=== PATIENT | male | born 1940 | race Caucasian/White ===

== ENCOUNTER 2016-11-02 09:39 | Inpatient (IN) ==
[2016-11-02] MEDS ORDERED: MORPHINE IV ONE ×3 (10:09→13:01)
[2016-11-02] MEDS ORDERED: ZOFRAN IV ONE (10:10)
--- NOTE | 2016-11-02 10:16 | PROVIDER DOCUMENTATION ---
HPI-Musculoskeletal Pain/Inj - GENERAL Source: patient - HX OF PRESENT ILLNESS-MUSKULOSKELTAL Quality of Pain: reports: aching Severity in ED: moderate Onset/Duration: this morning Timing: still present Modifying Factors: improves with: nothing Any recent injury?: Yes (fall ) Locality of Occurance: Home Similar Symptoms Previously?: Yes Recently seen or treated by another doctor?: No - FALL INJURY Location of Pain/Injury: reports: pelvis (R hip), lower extremity (R upper leg) Pain Radiation: reports: no radiation Reason for Fall: reports: tripped Symptoms prior to fall:: reports: none Loss of Consciousness: no loss of consciousness Injury Associated Symptoms: reports: joint pain (R hip), unable to bear weight ( R), trouble walking. denies: arm pain, back/neck pain, chest pain, diaphoresis , dizziness, headaches, muscle aches, nausea, puncture wound, shortness of breath, sensory/motor loss, snap/crack/pop sensation, pain with inspiration, vomiting, weakness - TRUNK INJURY Location of Injury(s)/Pain: reports: pelvis (R) Context / Method of Injury: reports: fall Associated Symptoms: reports: denies symptoms - HIP/PELVIS PAIN/INJURY Hip Pain Location: reports: hip (R) Pain Radiation: reports: upper legs (R) Context / Method of Injury: reports: fall Associated Symptoms: reports: weakness in legs/feet (R). denies: loss of bladder control, loss of bowel control, lower back pain, muscle spasms, numbness in legs/feet, sensory/motor loss, tingling in legs/feet - LOWER EXTREMITY PAIN/INJURY Lower Extremities Pain: leg: right (upper leg pain ) Context / Method of Injury: reports: fell Associated Symptoms: reports: weakness in legs/feet (R). denies: loss of bladder control, loss of bowel control, lower back pain, muscle spasms, numbness in legs/feet, sensory/motor loss, tingling in legs/feet <Terrie Buck - Last Filed: 11/06/16 10:46> <Rashawn Wren - Last Filed: 11/14/16 11:19> - GENERAL Chief Complaint: Hip Pain Stated Complaint: Fall Time Seen by Provider: 11/02/16 10:06 - HX OF PRESENT ILLNESS-MUSKULOSKELTAL Nature of Presenting Problem: Pt is 76 y/o M presents to the ED via EMS with R hip pain. EMS states Pt fell this am due to tripping. Pt states pain in R hip and R upper leg. Pt denies head injury or LOC. (Terrie Buck) Review of Systems - Adult - REVIEW OF SYSTEMS - ADULT Constitutional: denies: chills, fever Eyes: denies: blurred vision, double vision Ears, Nose, Mouth & Throat: denies: ear pain, nose pain, throat pain Cardiovascular: denies: chest pain, heart murmur, irregular heart rate Respiratory: denies: cough, shortness of breath, wheezing Gastrointestinal: denies: abdominal pain, diarrhea, nausea, vomiting Genitourinary: denies: dysuria, hematuria Musculoskeletal: reports: bone pain, joint pain (R hip), other (pain in r hip, pelvis, and upper leg). denies: back pain, neck pain Integumentary: denies: hives, itching Neurological: denies: dizziness/vertigo, headache/migraines Psychiatric: reports: no symptoms reported Endocrine: reports: no symptoms reported Hematologic/Lymphatic: reports: no symptoms reported Allergic/Immunologic: reports: no symptoms reported All Other Systems: Reviewed and Negative <Terrie Buck - Last Filed: 11/06/16 10:46> Past History - Adult - PAST MEDICAL HISTORY-ADULT Review of Records: reports: Nursing Assessment Review, Medications Reviewed, Social history reviewed & non-contributory. Major Childhood Illnesses: reports: denies history Cardiovascular: reports: CAD, CHF, HTN, hyperlipidemia, VA Respiratory: reports: COPD Gastrointestinal: reports: denies history Obstetrical/Gynecological: reports: denies history Genitourinary: reports: denies history Musculoskeletal: reports: denies history Neurological: reports: CVA Endocrine/Immune: reports: anemia (Iron Deficiency), Diabetes Other Conditions: reports: denies history - PRIOR SURGERIES/PROCEDURES Surgical/Procedure History: reports: cardiac stent, tonsillectomy, hernia repair , other (vasectomy,carotids) - IMMUNIZATION STATUS Childhood Immunizations: See Nurse Assessment Flu Vaccine: See Nurse Assessment - FAMILY HISTORY Family History: reviewed, not pertinent - SOCIAL HISTORY Smoking: quit greater than 1 year, cigarettes Substance Use: denies Living Situation: family <Terrie Buck - Last Filed: 11/06/16 10:46> Physical Exam-Injury Related - Physical Exam-Injury Related Initial Vital Signs Reviewed: Yes General Appearance: appears well, alert, moderate distress Eyes: PERRL/EOMI, pink conjunctivae, fundi clear, no AV nicking Head, Ears, Nose, Mouth & Throat: normocephalic/atraumatic, moist mucous membranes, normal ENT inspection, TMs normal, pharynx normal Neck: non-tender, full range of motion, supple, normal inspection Respiratory: chest non-tender, lungs clear, normal breath sounds, no pleuratic chest pain, no respiratory distress, no accessory muscle use Cardiovascular: normal peripheral pulses, regular rate, rhythm, no edema, no gallop, no JVD, no murmur Peripheral Pulses: dorsalis-pedis (R): 2+, dorsalis-pedis (L): 2+ Abdominal Exam: normal bowel sounds, non tender, soft, no organomegaly, no pulsatile mass, distended Lymphatic: no adenopathy Back Exam: normal inspection, no CVA tenderness, no vertebral tenderness Extremity: normal capillary refill, deformity (R hip and upper leg), tenderness (R hip and upper leg). negative: normal range of motion (limited ROM to R hip and leg), normal gait, normal inspection, pelvis stable Integumentary: normal color, warm/dry Neurologic: grossly normal Psych/Mental Status: normal mood/affect, oriented x 3 <Terrie Buck - Last Filed: 11/06/16 10:46> Progress - EKG 1 Time of EKG reading by physician:: 13:28 EKG Read and Signed by:: Sourav Torrez EKG Interpretation (*Must complete 3 of following elements*): Abnormal (septal infarct, age undetermined) Rate: 92 Rhythm: normal sinus rhythm Comments: RBBB; Left anterior fascicular block; bifascicular block - XRAY 1 XRAY: Bilateral XRAY Study: Chest Impression: Abnormal XRAY Interpretation: worse cardiomegaly 2 XRAY: Right XRAY Study: Femur Impression: Abnormal XRAY Interpretation: apparent femur fracture 3 XRAY: Bilateral XRAY Study: Pelvis Impression: Normal XRAY Interpretation: no acute disease - CONSULTS/PCP/HOSPITALIST Notification #1 *Consult/PCP/Hospitalist*: Dr. Patten Time Discussed: 13:21 (Dr. Patten states will consult on case ) Reason/Comments: Dr. Torrez consults with Dr. Patten about Pt <Terrie Buck - Last Filed: 11/06/16 10:46> <Rashawn Wren - Last Filed: 11/14/16 11:19> - PLAN OF CARE/RESULTS Progress/Plan/Lab Results: Orders Category Date Time Status FEMUR MIN 2 VIEWS RIGHT [RAD] Stat Exams 11/02/16 10:08 Ordered PELVIS [RAD] Stat Exams 11/02/16 10:07 Ordered XRAY HIP UNILATERAL RT [RAD] Stat Exams 11/02/16 10:07 Ordered Morphine Med 11/02/16 10:09 Discontinued 4 mg IV NOW ONE Ondansetron [Zofran] Med 11/02/16 10:10 Discontinued 4 mg IV NOW ONE Vital Signs - 24 hr 11/02/16 09:49 Temperature 98.2 F Pulse Rate 97 H Respiratory 15 Rate Blood Pressure 133/75 O2 Sat by Pulse 98 Oximetry Laboratory Tests 11/02/16 11/02/16 11/02/16 09:52 09:52 09:52 WBC 14.39 H RBC 5.03 Hgb 14.8 Hct 45.4 MCV 90.3 MCH 29.4 MCHC 32.6 L RDW Std Deviation 15.3 H Plt Count 147 MPV 12.7 H Immature Gran % (Auto) 0.3 Neut % (Auto) 79.2 H Lymph % (Auto) 11.0 L [place] % (Auto) 7.6 Eos % (Auto) 1.6 Baso % (Auto) 0.3 Immature Gran # (Auto) 0.05 H Neut # (Auto) 11.38 H Lymph # (Auto) 1.58 [place] # (Auto) 1.10 H Eos # (Auto) 0.23 Baso # (Auto) 0.05 PT 10.0 INR 0.98 Sodium 141 Potassium 4.2 Chloride 100 Carbon Dioxide 26 Anion Gap 15 BUN 14 Creatinine 1.1 Estimated GFR/1.73 m2 > 60 BUN/Creatinine Ratio 13 Glucose 253 H Calculated Osmolality 290 Calcium 9.2 Total Bilirubin 0.58 AST 35 H ALT 31 Alkaline Phosphatase 108 Total Protein 7.1 Albumin 3.7 Globulin 3.4 Albumin/Globulin Ratio 1.1 Laboratory Tests 11/02/16 11/02/16 11/02/16 09:52 09:52 09:52 WBC 14.39 H RBC 5.03 Hgb 14.8 Hct 45.4 MCV 90.3 MCH 29.4 MCHC 32.6 L RDW Std Deviation 15.3 H Plt Count 147 MPV 12.7 H Immature Gran % (Auto) 0.3 Neut % (Auto) 79.2 H Lymph % (Auto) 11.0 L [place] % (Auto) 7.6 Eos % (Auto) 1.6 Baso % (Auto) 0.3 Immature Gran # (Auto) 0.05 H Neut # (Auto) 11.38 H Lymph # (Auto) 1.58 [place] # (Auto) 1.10 H Eos # (Auto) 0.23 Baso # (Auto) 0.05 PT 10.0 INR 0.98 Sodium 141 Potassium 4.2 Chloride 100 Carbon Dioxide 26 Anion Gap 15 BUN 14 Creatinine 1.1 Estimated GFR/1.73 m2 > 60 BUN/Creatinine Ratio 13 Glucose 253 H Calculated Osmolality 290 Calcium 9.2 Total Bilirubin 0.58 AST 35 H ALT 31 Alkaline Phosphatase 108 Total Protein 7.1 Albumin 3.7 Globulin 3.4 Albumin/Globulin Ratio 1.1 Urine Source Urine Color Urine Turbidity Urine pH Ur Specific [place] Urine Protein Ur Glucose (Stick) Ur Ketones (Stick) Urine Blood Urine Nitrite Urine Bilirubin Urobilinogen Dipstick Urine Leukocytes Urine WBC (Auto) Urine RBC (Auto) U Epithel Cells (Auto) Urine Bacteria (Auto) 11/02/16 13:59 WBC RBC Hgb Hct MCV MCH MCHC RDW Std Deviation Plt Count MPV Immature Gran % (Auto) Neut % (Auto) Lymph % (Auto) [place] % (Auto) Eos % (Auto) Baso % (Auto) Immature Gran # (Auto) Neut # (Auto) Lymph # (Auto) [place] # (Auto) Eos # (Auto) Baso # (Auto) PT INR Sodium Potassium Chloride Carbon Dioxide Anion Gap BUN Creatinine Estimated GFR/1.73 m2 BUN/Creatinine Ratio Glucose Calculated Osmolality Calcium Total Bilirubin AST ALT Alkaline Phosphatase Total Protein Albumin Globulin Albumin/Globulin Ratio Urine Source CATH Urine Color YELLOW Urine Turbidity CLEAR Urine pH 6.0 Ur Specific [place] 1.021 Urine Protein TRACE A Ur Glucose (Stick) >1000 A Ur Ketones (Stick) TRACE A Urine Blood NEGATIVE Urine Nitrite NEGATIVE Urine Bilirubin NEGATIVE Urobilinogen Dipstick NORMAL Urine Leukocytes NEGATIVE Urine WBC (Auto) <10 Urine RBC (Auto) <10 U Epithel Cells (Auto) <10 Urine Bacteria (Auto) NEGATIVE (Terrie Buck) Departure - Departure Time of Disposition Order: 13:21 Certified Medical Emergency: Emergent <Terrie Buck - Last Filed: 11/06/16 10:46> - Departure Time of Disposition Order: 13:21 Certified Medical Emergency: Emergent <Rashawn Wren - Last Filed: 11/14/16 11:19> - Departure DIAGNOSIS: Right femoral fracture Qualifiers: Encounter type: initial encounter Femur location: unspecified portion of femur Fracture type: closed Fracture morphology: other fracture Qualified Code(s): S72.8X1A - Other fracture of right femur, initial encounter for closed fracture Leukocytosis, unspecified Qualifiers: Leukocytosis type: other Qualified Code(s): D72.828 - Other elevated white blood cell count Disposition: ADMITTED INPATIENT 09 Condition: Stable Attestation - Scribe Verification/Attestation Scribe:: Terrie Buck Acting as Scribe for:: Sourav Torrez Scribe documention review:: This chart was documented by a scribe and accurately reflects the service the provider performed and the decisions made by the provider. <Terrie Buck - Last Filed: 11/06/16 10:46> - Scribe Verification/Attestation Scribe:: Rashawn Wren Acting as Scribe for:: Sourav Torrez Scribe documention review:: This chart was documented by a scribe and accurately reflects the service the provider performed and the decisions made by the provider. <Rashawn Wren - Last Filed: 11/14/16 11:19> Physician Attestation - Physician Attestation I, the provider, attest to the following statement:: Sourav Torrez Physician documentation Attestation:: This documentation recorded by the scribe accurately reflects the service I personally performed and the decisions made by me. <Rashawn Wren - Last Filed: 11/14/16 11:19>
[2016-11-02 11:58] LABS: MANUAL DIFF NEEDED? NO
[2016-11-02 12:08] LABS: BASO% 0.3 % (0.0-0.8); EOS# 0.23 X1000 (0.0-0.7); EOS% 1.6 % (0.0-10.0); HEMATOCRIT 45.4 % (42.0-52.0); HEMOGLOBIN 14.8 g/dL (14.0-18.0); IMM GRAN# 0.05 X1000 (0.0-0.04); IMM GRAN% 0.3 % (0.0-0.5); LYMPH# 1.58 X1000 (1.2-3.4); MCH 29.4 PG (27-31); MCHC 32.6 g/dL (33-37); MCV 90.3 FL (81-99); MONO% 7.6 % (1.7-9.3); MPV 12.7 FL (7.4-10.4); NEUT% 79.2 % (42.2-75.2); PLT 147 X1000 (130-400); RBC 5.03 XMIL (4.7-6.1)
[2016-11-02 12:35] LABS: INR 0.98
[2016-11-02 12:44] LABS: AGAP 15; ALBUMIN 3.7 g/dL (3.5-5.0); ALKALINE PHOSPHATASE 108 U/L (32-122); BUN 14 mg/dL (8-22); CALCIUM 9.2 mg/dL (8.8-10.2); CHLORIDE 100 mmol/L (98-107); COSMO 290; GOT 35 U/L (10-34); GPT 31 U/L (10-44); POTASSIUM 4.2 mmol/L (3.5-5.1); SODIUM 141 mmol/L (136-145); TCO2 26 mmol/L (25-35); TOTAL BILIRUBIN 0.58 mg/dL (0.20-1.00); TOTAL PROTEIN 7.1 g/dL (6.3-8.3)
--- NOTE | 2016-11-02 12:46 | Diag Imaging Result Document ---
PROCEDURE NAME: CHEST-1 VIEW - 11/02/2016 PORTABLE CHEST X-RAY: COMPARISON: 09/14/2016. FINDINGS: There is cardiomegaly. This may have worsened since prior. Stable calcified granuloma in the right lung base. No focal infiltrates or edema. IMPRESSION: Worsening cardiomegaly.
--- NOTE | 2016-11-02 12:46 | Diag Imaging Result Document ---
PROCEDURE NAME: PELVIS - 11/02/2016 PELVIS: COMPARISON: None. FINDINGS: The pelvis and hips are intact. There are some degenerative calcifications of the iliac wings and some mild degenerative changes of the hips. IMPRESSION: No acute disease.
--- NOTE | 2016-11-02 12:50 | Diag Imaging Result Document ---
PROCEDURE NAME: FEMUR MIN 2 VIEWS RIGHT - 11/02/2016 RIGHT FEMUR, 4 VIEWS: COMPARISON: None. FINDINGS: There is a displaced, angulated, oblique shaft fracture of the mid proximal-mid left femur shaft. Actually 2 the films are marked left and 2 are marked right, so it is anyone's guess which femur is fractured. Correlate clinically. IMPRESSION: Apparent femur fracture.
[2016-11-02 14:08] LABS: URINE CULTURE NEEDED? NO; URINE MICRO REVIEW NEEDED? NO; URINE SOURCE CATH
[2016-11-02 14:15] LABS: BILIRUBIN URINE NEGATIVE (NEGATIVE); BLOOD URINE NEGATIVE (NEGATIVE); COLOR YELLOW; GLUCOSE URINE >1000 mg/dL (NEGATIVE); LEUKOCYTES URINE NEGATIVE (NEGATIVE); NITRITE URINE NEGATIVE (NEGATIVE); PROTEIN URINE TRACE mg/dL (NEGATIVE); SP GRAVITY URINE 1.021; TURBIDITY URINE CLEAR (CLEAR); UR EPITHELIAL CELLS <10 /HPF (<10); URINE BACTERIA NEGATIVE /HPF; URINE RBC <10 /HPF (<10); URINE WBC <10 /HPF (<10); UROBILINOGEN URINE NORMAL (NORMAL)
[2016-11-02] MEDS ORDERED: LOVENOX SUBQ SCH (14:19)
[2016-11-02] MEDS ORDERED: ZOFRAN IV PRN (14:19)
[2016-11-02] MEDS ORDERED: VENTOLIN HFA INH PRN (14:19)
[2016-11-02] MEDS ORDERED: NORCO-7.5 PO PRN (14:19)
[2016-11-02] MEDS ORDERED: NS 1,000 ML IV SCH (14:19)
[2016-11-02] MEDS ORDERED: TYLENOL PO PRN (14:19)
[2016-11-02] MEDS ORDERED: NS NEB INH SCH (15:45)
[2016-11-02] MEDS: DILAUDID IV PRN ×2 (16:28→22:19)
[2016-11-02] MEDS: HUMULIN R SUBQ SCH ×2 (17:33→22:28)
[2016-11-02] MEDS: PRILOSEC PO SCH (18:08)
--- NOTE | 2016-11-02 18:08 | HISTORY AND PHYSICAL ---
PRIMARY CARE PROVIDER: Sandy Love M.D. CHIEF COMPLAINT: "I fell this morning when trying to get medication." HISTORY OF PRESENT ILLNESS: Mr. Brady is a 76-year-old, ill-appearing, male who is followed by hospice at home to manage his end-stage COPD. He states he is a full code here. He wishes to continue to be a full code here. He also has a history of diabetes, CAD, hypertension and a stroke, who apparently was sitting in his recliner this morning. He then stood up, twisted to go get his medication and he fell for which he then developed severe right leg pain. He apparently did hit his head on the coffee table but has no visual changes, no vomiting, no headache, no obvious signs of external contusion. He had an x-ray of his femur which showed a right femoral fracture. Dr. Patten has been consulted. We will admit to the surgical floor and NPO after midnight for possible surgery. We will keep the right leg in Sullivan's traction. PAST MEDICAL HISTORY: Diabetes mellitus type 2 times 1 year, coronary artery disease, congestive heart failure, hypertension, hypercholesterolemia, end-stage COPD, CVA in 1974, saccular aneurysm at the mid abdominal aorta, peripheral neuropathy, and obstructive sleep apnea. PAST SURGICAL HISTORY: Cardiac stents, tonsillectomy, inguinal hernia repair, vasectomy. SOCIAL HISTORY: He smoked 35 packs per day for 65 years, quit 05/21/2016. Denies alcohol or illicit drug use. He is on hospice for COPD end stage management. FAMILY HISTORY: Mother is at 84, she had coronary artery disease and CVA. Father at 69 from unknown causes. REVIEW OF SYSTEMS: Fourteen point review of systems were complete. He denies nausea, vomiting, diarrhea. He denies fever or chills. He denies chest pain. He does state that he has a moderate amount of phlegm that he coughs up but is unsure of the color. ALLERGIES: No known drug allergies. HOME MEDICATIONS: Coreg 6.25 p.o. twice daily, Plavix 75 mg p.o. daily, albuterol sulfate inhaled every 6 hours, Lasix 20 mg p.o. twice daily, albuterol inhaled twice daily, Lipitor 20 mg p.o. daily, Flomax 0.4 mg p.o. daily, Glucotrol 10 mg p.o. twice daily, Lasix 40 mg p.o. daily though it appears that he takes 60 mg in the morning and 20 at night, potassium chloride 10 mEq p.o. daily, Prilosec 20 mg p.o. daily, Singulair 10 mg p.o. daily, Januvia 100 mg p.o. daily, metformin 1000 mg p.o. twice daily. LABORATORY DATA: White blood cells 14,000, hemoglobin 14, hematocrit 45, platelet count 147,000. INR 0.98. Sodium 141, potassium 4.2, BUN 14, creatinine is 1.1, glucose 253, calcium 9.2, total bilirubin 0.58. AST 35, ALT 31, albumin 3.7. Urinalysis: Trace protein, greater than 1000 glucose and trace ketones. Otherwise negative. IMAGING: Chest x-ray: Worsening cardiomegaly. Stable calcified granuloma in the right lung base. No infiltrates or edema. Femur x-ray: Right femoral fracture. Hip-pelvic x-ray: No acute fractures. PHYSICAL EXAMINATION: VITAL SIGNS: Temperature is 98.1 degrees, heart rate 89, respiratory rate 18, blood pressure 152/74, O2 saturation 95% on 3 L nasal cannula. He is 5 feet 6 inches tall, 220 pounds, BMI 35.5. GENERAL: Mr. Brady is an ill-appearing 76-year-old, male. He is in no acute distress. He is answering most questions appropriately. HEENT: Atraumatic, normocephalic. Pupils equal, round, reactive to light. Extraocular movements intact. Mucous membranes are very dry. NECK: No JVD or carotid bruits. CARDIOVASCULAR: S1, S2. Regular rate and rhythm. No rubs, gallops or murmurs. PULMONARY: Coarse bilaterally anteriorly in the bases and decreased in the bases. No accessory muscle use or work of breathing noted. Currently on 3 L nasal cannula. He does have a little bit of almost a central cyanosis appearance. He has got a blue hue to his lips and his ears but refuses ABGs. GASTROINTESTINAL: Tender right upper and left lower quadrant. EXTREMITIES: Signs of venous stasis in the bilateral lower extremities. He has +2 dorsalis pedal pulses, +2 radial pulses. Extreme sensitivity to touch which causes pain to bilateral lower extremities. Upper extremities equal in strength. Left lower extremity has range of motion. Right lower extremity is unable to be moved secondary to fracture. He is able to wiggle his toes. NEUROLOGIC: Alert and oriented. SKIN: Warm, dry, intact. There are a couple of little old scabs along the left jordan. ASSESSMENT AND PLAN: 1. Right femoral fracture. He will be placed in Sullivan's traction. Dilaudid for pain control. Dr. Patten has been consulted. NPO after midnight. Antiemetics for nausea. 2. Leukocytosis. Urinalysis is negative. We will send a sputum culture as he has a productive cough and is unsure of the color although chest x-ray appears to be clear of any signs of pneumonia. We will add blood cultures on. He is afebrile. White count is 14,000. This could be secondary to inflammatory response. 3. Diabetes mellitus type 2. Do a diabetic diet. Pattern blood glucoses with sliding scale insulin and check hemoglobin A1c. 4. End-stage chronic obstructive pulmonary disease with obstructive sleep apnea. He is followed by hospice at home for his end-stage chronic obstructive pulmonary disease management. We will do Xopenex-Atrovent nebs, budesonide nebs and acetylcysteine nebs. Aggressive pulmonary toilet and consider Pulmonary consultation. We will send a sputum culture. 5. Hypertension. Continue home medications. 6. Coronary artery disease. He had a history of cardiac stents. He is on Plavix. We will hold Plavix for now. 7. Congestive heart failure. Last echocardiogram was performed on 05/25/2016. Ejection fraction was estimated at 50%. Unsure if maybe he even has some diastolic dysfunction but could consider repeating an echocardiogram. His chest x-ray does show worsening cardiomegaly but there is no pulmonary edema at this time. He does have some trace lower extremity edema. 8. Hypercholesterolemia. Continue home medications. 9. History of cerebrovascular accident. No residuals. 10. Deep venous thrombosis prophylaxis. Low-dose Lovenox. 11. Gastrointestinal prophylaxis. Proton pump inhibitor. Dictated by ARTHUR Fuentes for Tim Nguyen MD
[2016-11-02] MEDS: PULMICORT INH SCH (19:53)
[2016-11-02] MEDS: ATROVENT NEB INH SCH ×2 (19:53→23:37)
[2016-11-02] MEDS: XOPENEX NEB INH SCH ×2 (19:53→23:37)
[2016-11-02] MEDS: MUCOMYST 20% INH SCH (19:53)
--- NOTE | 2016-11-02 21:39 | CONSULTATION ---
ADMITTING PHYSICIAN: Hospitalist. CONSULTING PHYSICIAN: Dawson Patten MD CHIEF COMPLAINT: Right hip pain. HISTORY OF PRESENT ILLNESS: Mr. Brady is a 76-year-old white male who experienced right hip pain status post a mechanical fall this morning at his home. He was arising from his seat when he pitched forward, twisting, landing on his right hip. He was unable to bear weight following the incident. He was brought to the emergency room by ambulance where radiographic evaluation of the right hip revealed an oblique midshaft right femur fracture. Mr. Brady admits he did strike his head when falling, however, he denies any headaches, changes in vision, loss of consciousness, or other focal deficits. Orthopedics was consulted for evaluation. Primary care provider is Sandy Love. ALLERGIES: No known drug allergies. PAST MEDICAL HISTORY: 1. Chronic obstructive pulmonary disease. 2. Coronary artery disease. 3. Cerebrovascular disease. 4. Diabetes mellitus type 2. 5. Diastolic heart failure. 6. Abdominal aortic aneurysm. 7. Osteoarthritis. 8. Gastroesophageal reflux disease. 9. Dyslipidemia. 10.Benign prostatic hypertrophy. PAST SURGICAL HISTORY: 1. Percutaneous transluminal coronary angioplasty on two separate occasions. 2. Left carotid endarterectomy. 3. Tonsillectomy. 4. Excision of skin cancer on his face. SOCIAL HISTORY: The patient is . He is a long-term smoker. He requires home oxygen. REVIEW OF SYSTEMS: HEENT: The patient has a history of a prior cerebrovascular accident in the remote past. He denies any residual focal neurological deficits. He also has previously undergone a carotid endarterectomy. Cardiac: The patient has a longstanding history of coronary artery disease, having undergone percutaneous transluminal coronary angioplasty. He has been diagnosed with diastolic heart failure. 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 He denies chest pain, pressure or other anginal equivalents. Pulmonary: The patient is a long-term smoker. He has a history of COPD and pulmonary insufficiency. He requires home oxygen. Gastrointestinal: He has a history of gastroesophageal reflux disease. Denies any recent nausea, vomiting, diarrhea, constipation. Genitourinary: He is treated for benign prostatic hypertrophy. Neurological: No residual deficits status post cerebrovascular accident. Musculoskeletal: He has a history of osteoarthritis and he is here today for evaluation of a right midshaft femur fracture. Other: Diabetes mellitus, abdominal aortic aneurysm, obesity. PHYSICAL EXAMINATION: General: The patient is alert and oriented. He is resting comfortably in bed. His is at his bedside. He is able to answer all questions fully and is articulate in his responses. HEENT: I performed a head to toe examination. No lumps, bumps or deformities on palpation of his face and cranium. Pupils are equal, round, and reactive to light. Nares were patent. He is wearing a nasal cannula. Cardiac: I was unable to discern heart sounds secondary to his chest wall size. Pulmonary: Lungs were clear bilaterally. The patient moved little air. Gastrointestinal: Obese white male. His abdomen was found. Bowel sounds are present. It is nontender. Genitourinary: He has a Espinoza catheter in place. Neurological: He is able to recognize soft touch. Gross motor function is intact to the affected extremity. Musculoskeletal: Right hip: He has fullness overlying the right femur. He refuses to move the extremity secondary to pain. Neurovascular status is intact with good peripheral pulse. IMPRESSION: Right oblique midshaft femur fracture. PLAN: Intramedullary nailing of the right midshaft femur fracture when medically cleared. The risks and benefits of surgery were explained to the patient including the risk of anesthesia, , bleeding, infection, damage to tendons, ligaments, nerves, and blood vessels, the possibility of blood clots and other imponderables were discussed. The patient wishes to proceed with operative management when indicated. Dictated by MARGARET Matias for Dawson Patten MD
[2016-11-02] MEDS: COREG PO SCH (22:19)
[2016-11-03] MEDS: XOPENEX NEB INH SCH ×6 (03:42→23:05)
[2016-11-03] MEDS: ATROVENT NEB INH SCH ×6 (03:42→23:05)
[2016-11-03 06:26] LABS: MANUAL DIFF NEEDED? NO
[2016-11-03 06:30] LABS: BASO% 0.3 % (0.0-0.8); EOS# 0.12 X1000 (0.0-0.7); EOS% 0.9 % (0.0-10.0); HEMATOCRIT 42.8 % (42.0-52.0); HEMOGLOBIN 13.8 g/dL (14.0-18.0); IMM GRAN# 0.04 X1000 (0.0-0.04); IMM GRAN% 0.3 % (0.0-0.5); LYMPH# 1.95 X1000 (1.2-3.4); LYMPH% 15.3 % (20.5-51.1); MCH 29.4 PG (27-31); MCHC 32.2 g/dL (33-37); MCV 91.3 FL (81-99); MONO% 9.4 % (1.7-9.3); MPV 11.1 FL (7.4-10.4); NEUT% 73.8 % (42.2-75.2); PLT 148 X1000 (130-400); RBC 4.69 XMIL (4.7-6.1)
[2016-11-03] MEDS: DILAUDID IV PRN ×2 (06:34→10:27)
[2016-11-03] MEDS: HUMULIN R SUBQ SCH ×3 (06:34→18:42)
[2016-11-03] MEDS: PRILOSEC PO SCH ×2 (06:34→18:47)
[2016-11-03 06:41] LABS: INR 1.01; PROTIME 10.3 Seconds (9.2-11.7); PTT 24.7 Seconds (22.0-36.0)
[2016-11-03 06:42] LABS: HEMOGLOBIN A1C 9.1 % (4.8-6.0)
[2016-11-03 06:45] LABS: AGAP 14; ALBUMIN 3.6 g/dL (3.5-5.0); ALKALINE PHOSPHATASE 79 U/L (32-122); BUN 11 mg/dL (8-22); CALCIUM 8.8 mg/dL (8.8-10.2); CHLORIDE 102 mmol/L (98-107); COSMO 294; GOT 31 U/L (10-34); GPT 26 U/L (10-44); MAGNESIUM 1.8 mg/dL (1.5-2.7); POTASSIUM 4.2 mmol/L (3.5-5.1); SODIUM 145 mmol/L (136-145); TCO2 29 mmol/L (25-35); TOTAL BILIRUBIN 0.78 mg/dL (0.20-1.00); TOTAL PROTEIN 6.2 g/dL (6.3-8.3)
[2016-11-03 06:50] LABS: FREE T4 0.96 ng/dL (0.93-1.70)
--- NOTE | 2016-11-03 07:54 | EKG Report ---
Test Performed on : 11/03/2016 07:03:47 AM Test Reason : chest pain Blood Pressure : / mmHG Vent. Rate : 090 BPM Atrial Rate : 090 BPM P-R Int : 182 ms QRS Dur : 138 ms QT Int : 410 ms P-R-T Axes : 055 -51 045 degrees QTc Int : 501 ms Normal sinus rhythm. Right bundle branch block Left anterior fascicular block Bifascicular block Septal infarct (cited on or before 07-JAN-2015) Possible Lateral infarct , age undetermined Abnormal ECG When compared with ECG of 02-NOV-2016 13:28, (Unconfirmed) Questionable change in initial forces of Septal leads Confirmed by Cecil PEREA, Young Bright ([id number]) on 11/05/2016 1:14:10 PM
[2016-11-03] MEDS: PULMICORT INH SCH ×2 (08:13→19:08)
[2016-11-03] MEDS: MUCOMYST 20% INH SCH ×2 (08:13→19:08)
--- NOTE | 2016-11-03 09:50 | CONSULTATION ---
DATE OF CONSULTATION: 11/03/2016 REFERRING PHYSICIAN: Dr. Nguyen. CHIEF COMPLAINT: Fall. HISTORY OF PRESENT ILLNESS: This is a 76-year-old, male with a past medical history of diabetes, CAD, CHF, hypertension, hyperlipidemia end-stage COPD, CVA, peripheral neuropathy, and obstructive sleep apnea who presented to the hospital after sustaining a mechanical fall. He has been admitted to the hospital for medical clearance for an intramedullary nailing of the right femur. The patient denies any chest pain, abdominal pain, nausea, vomiting, or increased work of breathing. REVIEW OF SYSTEMS: A 10-point review of systems was conducted. Pertinent findings are noted in the HPI, otherwise noncontributory. PAST MEDICAL HISTORY: As mentioned in the HPI, otherwise noncontributory. PAST SURGICAL HISTORY: Cardiac stents, tonsillectomy, inguinal hernia repair, vasectomy. SOCIAL HISTORY: The patient stopped smoking in 2015. Denies the use of alcohol or illicit drugs, and is on hospice for end-stage COPD management. FAMILY HISTORY: Notable for CAD and CVA. ALLERGIES: No known drug allergies. ACTIVE MEDICATIONS: Tylenol, Webb, Mucomyst, Lipitor, Pulmicort, Coreg, Lovenox, Dilaudid, Humulin, Atrovent, Xopenex, Singulair, Prilosec, Zofran, and Flomax. LABS AND INVESTIGATIONS: WBC 12.7, RBCs 4.69, hemoglobin 13.8, hematocrit 42.8 , platelet count 148,000. Sodium 145, potassium 4.2, chloride 102, carbon dioxide 29, anion gap 14, BUN 11, creatinine 1.1, glucose 207. Chest x-ray performed on 11/02/2016 shows worsening cardiomegaly. ASSESSMENT AND PLAN: This is a 76-year-old, male with a past medical history as mentioned in the history of present illness who presented to the hospital after sustaining a mechanical fall that resulted in a right femur fracture. COPD and pneumonia is possible. He is being medically cleared for an intramedullary nailing of the right femur. Continue chronic home medications, Dilaudid for pain management, his inhaled COPD regimen, Prilosec for gastrointestinal prophylaxis , and Lovenox for deep venous thrombosis prophylaxis. Further recommendations pending diagnostic studies. Dictated by ARTHUR Weeks for Guru Deras MD [facility]
[2016-11-03 10:54] LABS: ALLEN TEST YES; BE 3.8 mmoll (-3.0-3.0); BLOOD TYPE ARTERIAL; DRAW SITE L RADIAL; METHB 1.6 % (0.0-1.5); PO2(98.6) 52 mmHg (60-100); SAMPLE BLOOD; SAO2 88.9 % (95.0-100.0); THB 14.3 g/dL (11.5-17.4); pH(98.6) 7.35 (7.35-7.45)
[2016-11-03 11:01] LABS: MODALITY CANNULA; PCO2(98.6) 56 mmHg (35-45)
[2016-11-03] MEDS: COREG PO SCH ×2 (11:30→21:16)
--- NOTE | 2016-11-03 12:18 | PROGRESS NOTE ---
DATE: 11/03/2016 SUBJECTIVE: Today, Mr. Brady refers to be doing fine. He did not actually want anybody to bounce on his bed because of the pain. OBJECTIVE: Vital Signs: Stable. Blood pressure is 127/63, pulse of 58, respirations 20, and temperature is 98.2 degrees. General: Mr. Brady is a 76-year-old male, morbidly obese. He is in bed in some painful distress. Chest: Air entry is bilaterally reduced , but no crepitations, no rhonchi. Cardiovascular: Regular rate and rhythm. No murmurs , no rubs, no gallops. Abdomen: Distended, but nontender. Extremities: The right lower extremity at the thigh level is swollen and is tender. LABORATORY DATA: WBC is 12.71, hemoglobin is 13.8, platelet count of 147,000. The sodium is 145, potassium is 4.2, chloride is 102, bicarbonate is 29, and glucose is 207. A chest x-ray showed some cardiomegaly. ASSESSMENT: 1. Right oblique mid shaft femur fracture. The patient has been evaluated by Orthopedics and he is scheduled for surgery today. 2. Chronic obstructive pulmonary disease. Patient has actually been on hospice because of this and sounds like he has end-stage. We will ask Pulmonary Medicine to evaluate him, as well. 3. Morbid obesity. 4. Suspected sleep apnea. I think patient was on CPAP before; however, it does not look like he has been consistent with it. While he is here, we might be using the BiPAP if it is okay with Pulmonary Medicine. 5. History of coronary artery disease. 6. Congestive heart failure, stable. I think, in general, Mr. Brady is clinically stable. He does have end-stage chronic obstructive pulmonary disease, according to the . I think if patient will go under maybe spinal and local anesthesia, he should do fine for the surgery; however, Dr. Deras will also evaluate him and give us his recommendations. From the medical standpoint, I think he is relatively stable for a moderate-risk procedure. MTDD
[2016-11-03] MEDS: SINGULAIR PO SCH (12:21)
[2016-11-03] MEDS: FLOMAX PO SCH (12:21)
[2016-11-03] MEDS: LIPITOR PO SCH (12:22)
[2016-11-03] MEDS ORDERED: KEFZOL 2 GM/D5W 50 ML ONE (12:28)
--- NOTE | 2016-11-03 12:31 | EKG Report ---
Test Performed on : 11/02/2016 1:28:38 PM Test Reason : ED. Not ordered in [place] Blood Pressure : / mmHG Vent. Rate : 092 BPM Atrial Rate : 092 BPM P-R Int : 184 ms QRS Dur : 130 ms QT Int : 424 ms P-R-T Axes : 059 -58 041 degrees QTc Int : 524 ms Normal sinus rhythm. Right bundle branch block Left anterior fascicular block Bifascicular block Septal infarct (cited on or before 07-JAN-2015) Abnormal ECG When compared with ECG of 17-JAN-2015 20:56, premature atrial complexes. are no longer present (RBBB and left anterior fascicular block) is now present Questionable change in initial forces of Septal leads Unconfirmed Result
--- NOTE | 2016-11-03 12:39 | Diag Imaging Result Document ---
PROCEDURE NAME: CHEST-1 VIEW - 11/03/2016 PORTABLE CHEST X-RAY: COMPARISON: 11/02/2016. FINDINGS: Stable cardiomegaly. Lung volumes are lower. There is some worsening ill-defined airspace opacity in the right lung base suggesting atelectasis, although infiltrate is also possible. Otherwise little change from prior. IMPRESSION: Cardiomegaly. Lower lung volumes. Nonspecific atelectasis or infiltrate in the right lung base.
[2016-11-03] MEDS ORDERED: DIPRIVAN 1% ONE (14:40)
[2016-11-03] MEDS ORDERED: NS 1,000 ML ONE (14:56)
--- NOTE | 2016-11-03 15:03 | OPERATIVE NOTE ---
PROCEDURE DATE: 11/03/2016 PREOPERATIVE DIAGNOSIS: Right femur fracture. POSTOPERATIVE DIAGNOSIS: Right femur fracture. PROCEDURE: Right long trochanteric fixation nail placement, size 380 mm, with a 95 mm helical blade and 2 distal locking screws, 5.0 screws measuring 44 and 52 mm in length. ANESTHESIA: General. SURGEON: Dawson Patten MD. VETERINARIAN ASSISTANT: [place] PA-C. COMPLICATIONS: None. BLOOD LOSS: Minimal. DESCRIPTION OF PROCEDURE: The patient was brought to the operative suite and placed in supine position. After the satisfactory administration of general anesthesia, the patient was placed on the OSI table in the usual position for right hip. The right hip was then prepped and draped in usual sterile fashion. The right hip was reduced under fluoroscopy and then through a stab incision at the proximal tip of the greater trochanter dissected sharply through the skin. Then a guide pin was placed in the center of the femoral canal on AP and lateral images. It was reamed with a solid cannulated reamer and then a ball-tip guide wire was passed across the fracture site and buried in the distal metaphysis, and then the canal was serially reamed to 13 mm. It was measured to 380 mm. A 380 mm TFN was driven into place and then, once this was buried, through a stab incision laterally a guide pin was placed in the center of the femoral head on the AP and lateral images using the proximal guide. This was measured to 95 mm. It was reamed and then the helical blade was driven into place and locked proximally. The proximal guide was then removed. Traction was released and the fracture site was shown to be well reduced. The proximal helical blade and proximal nail were shown to be in good position, as well, on the AP and lateral images. Attention was then directed to the distal locking screws. Using the perfect circles technique through stab incisions, these holes were drilled and proper length screws were measured and driven into place. The wounds were copiously irrigated. Skin edges were approximated with 2-0 Vicryl. Skin was closed with skin kenrick and a sterile dressing was applied. The patient tolerated the procedure well, without complication. At the end of the procedure, all counts were correct x2. The patient was transferred to the recovery room in stable condition.
[2016-11-03] MEDS ORDERED: HALDOL IV PRN ×2 (15:14→15:23)
[2016-11-03] MEDS ORDERED: MILK OF MAGNESIA PO PRN ×2 (15:14→15:23)
[2016-11-03] MEDS ORDERED: ZOFRAN IV PRN ×2 (15:14→15:23)
[2016-11-03] MEDS: NS 1,000 ML IV SCH (15:15)
[2016-11-03] MEDS ORDERED: NS 1,000 ML IV SCH (15:23)
[2016-11-03] MEDS ORDERED: MORPHINE IV PRN (15:23)
[2016-11-03] MEDS ORDERED: OXY IR PO PRN (15:23)
[2016-11-03] MEDS ORDERED: LR 1,000 ML ONE (15:45)
[2016-11-03] MEDS ORDERED: ANESTHESIA PB SET 88 IN 5742 ONE (15:45)
[2016-11-03] MEDS ORDERED: EXTENSION SET 32 IN 4522 ONE (15:45)
[2016-11-03] MEDS ORDERED: XYLOCAINE-MPF 2% ONE (15:45)
--- NOTE | 2016-11-03 16:09 | ECHO REPORT ---
ORDER DATE: 11/03/2016 ECHOCARDIOGRAPHIC MEASUREMENTS: 1. Interventricular septum 1.1 2. .Left ventricular posterior wall 1.0. 3. Diastolic diameter 5.4 4. Left atrium 4.8. 5. Aorta 4.2. FINDINGS: 1. Aortic valve leaflets are trileaflet. Pulmonic valve not well visualized. Technically suboptimal study. 2. Mitral valve was normal. Normal left ventricular cavity size. Endocardium not well visualized in all views. 3. Estimated ejection fraction of 50-55%. Would recommend MUGA scan to accurately assess systolic function. 4. Peak velocity across the aortic valve less than 2 m/sec. There is no aortic stenosis or regurgitation. There is trace tricuspid regurgitation. Trace mitral regurgitation. Peak velocity across the tricuspid valve was less than 2 m/sec. 5. There is no pericardial effusion or obvious intracardiac mass or thrombus seen.
[2016-11-03] MEDS: TYLENOL PO SCH (16:51)
[2016-11-03] MEDS: OXY IR PO PRN ×2 (18:47→21:16)
[2016-11-03] MEDS ORDERED: COLACE PO SCH (21:00)
[2016-11-03] MEDS: COLACE PO SCH (21:15)
[2016-11-03] MEDS: KEFZOL 1 GM/D5W 50 ML IV SCH (21:15)
[2016-11-03] MEDS: PERIDEX MT SCH ×2 (21:15→21:25)
[2016-11-04] MEDS: TYLENOL PO SCH ×3 (01:10→17:02)
[2016-11-04] MEDS: XOPENEX NEB INH SCH ×5 (03:04→19:43)
[2016-11-04] MEDS: ATROVENT NEB INH SCH ×4 (03:04→15:40)
[2016-11-04] MEDS: KEFZOL 1 GM/D5W 50 ML IV SCH (04:17)
[2016-11-04] MEDS: OXY IR PO PRN ×3 (04:18→16:24)
[2016-11-04] MEDS: NS 1,000 ML IV SCH ×2 (04:18→17:11)
[2016-11-04 04:53] LABS: ALLEN TEST YES; BE 3.6 mmoll (-3.0-3.0); BLOOD TYPE ARTERIAL; DRAW SITE R RADIAL; METHB 1.6 % (0.0-1.5); O2(CT) 22.5 mL/dL (15.0-23.0); PO2(98.6) 71 mmHg (60-100); SAMPLE BLOOD; SAO2 96.1 % (95.0-100.0); THB 17.4 g/dL (11.5-17.4); pH(98.6) 7.37 (7.35-7.45)
[2016-11-04 04:54] LABS: MODALITY VENTIMASK
[2016-11-04 04:55] LABS: PCO2(98.6) 53 mmHg (35-45)
[2016-11-04] MEDS ORDERED: XARELTO PO SCH (06:00)
[2016-11-04] MEDS: PRILOSEC PO SCH ×2 (06:05→19:17)
[2016-11-04] MEDS: XARELTO PO SCH (06:06)
[2016-11-04] MEDS: HUMULIN R SUBQ SCH ×3 (06:09→17:03)
[2016-11-04] MEDS: MUCOMYST 20% INH SCH ×2 (07:31→19:43)
[2016-11-04] MEDS: PULMICORT INH SCH ×2 (07:32→19:43)
--- NOTE | 2016-11-04 07:33 | Diag Imaging Result Document ---
PROCEDURE NAME: US ABDOMEN-COMPLETE - 11/03/2016 An attempt was made to perform an abdominal ultrasound. Exam was limited due to patient being combative, increased bowel gas, and large body habitus. The gallbladder is distended and there are no stones. The wall is not thickened. There is fatty infiltration of the liver. The liver appears prominent. Neither kidney is well seen. The spleen is poorly seen. The pancreas, aorta, and inferior vena cava are all predominantly obscured. IMPRESSION: Limited exam. The liver does appear prominent with fatty infiltration.
[2016-11-04] MEDS ORDERED: FERROUS SULFATE PO SCH (08:00)
--- NOTE | 2016-11-04 08:57 | PROGRESS NOTE ---
DATE: 11/04/2016 SUBJECTIVE: Jairo Brady is a 76-year-old male who is postop day 1 from a right femur intramedullary nail with a TFN. He has no complaints. OBJECTIVE: General: He is a well-developed well-nourished male. He is alert, oriented, and cooperative with the exam. Vital signs: His vital signs are stable. He is afebrile. Extremities: His leg is neurovascularly intact. His hematocrit is stable. ASSESSMENT: Stable postoperative day 1 visit from a right TFN. PLAN: We will continue working with physical therapy. He will likely go home or to rehab at the first part of the week.
[2016-11-04 09:49] LABS: MANUAL DIFF NEEDED? NO
[2016-11-04 09:51] LABS: BASO% 0.3 % (0.0-0.8); EOS# 0.24 X1000 (0.0-0.7); EOS% 1.9 % (0.0-10.0); HEMATOCRIT 41.5 % (42.0-52.0); HEMOGLOBIN 13.2 g/dL (14.0-18.0); IMM GRAN# 0.05 X1000 (0.0-0.04); IMM GRAN% 0.4 % (0.0-0.5); LYMPH# 1.91 X1000 (1.2-3.4); LYMPH% 14.8 % (20.5-51.1); MCH 29.2 PG (27-31); MCHC 31.8 g/dL (33-37); MCV 91.8 FL (81-99); MONO# 1.28 X1000 (0.11-0.59); MONO% 9.9 % (1.7-9.3); MPV 10.6 FL (7.4-10.4); NEUT% 72.7 % (42.2-75.2); PLT 153 X1000 (130-400); RBC 4.52 XMIL (4.7-6.1)
[2016-11-04] MEDS: FLOMAX PO SCH (09:57)
[2016-11-04] MEDS: SINGULAIR PO SCH (09:57)
[2016-11-04] MEDS: LIPITOR PO SCH (09:57)
[2016-11-04] MEDS: COREG PO SCH (09:57)
[2016-11-04] MEDS: PERIDEX MT SCH (09:57)
[2016-11-04] MEDS: FERROUS SULFATE PO SCH (09:57)
[2016-11-04 10:36] LABS: AGAP 14; BUN 11 mg/dL (8-22); CALCIUM 8.3 mg/dL (8.8-10.2); CHLORIDE 102 mmol/L (98-107); COSMO 289; SODIUM 141 mmol/L (136-145); TCO2 25 mmol/L (25-35)
[2016-11-04] MEDS: LEVAQUIN 500 MG/D5W 100 ML IV SCH (12:42)
--- NOTE | 2016-11-04 18:08 | PROGRESS NOTE ---
DATE: 11/04/2016 SUBJECTIVE: Today Mr. Brady states that he is doing fine, family members at the bedside, he is complaining of constipation and shortness of breath. He has a end-stage COPD and actually he has been on hospice but because of his severe weakness, his and the patient want physical therapy and the possibility of rehab center before going home. OBJECTIVE: Vital Signs: Temperature 98.4 degrees, pulse 84, respiratory rate 20, blood pressure 112/64, oxygen saturation 91% on Venturi mask 50% oxygen flow. HEENT: Head normocephalic. No trauma. PERRLA. Neck: Supple. No JVD. Chest: Decreased air entry bilaterally. Prolonged expiatory phase. Scattered wheezing. No rales. No rhonchi. Cardiovascular: RRR. No murmurs. Abdomen: Soft, distended, nontender and positive bowel sounds. Extremities: Right lower extremity looks a little bit more swollen compared with the left and tender. LABORATORY: WBC 12.8, hemoglobin 13.2, hematocrit 41.5, platelets 153,000. Sodium 141, potassium 4, chloride 102, bicarbonate 25, BUN 11, creatinine 1.1, glucose 244, calcium 8.3. ASSESSMENT AND PLAN: 1. Right midshaft femur fracture. This patient has been evaluated by Orthopedic surgery and they went for surgery yesterday, they put a right long trochanteric fixation nail replacement. This patient is complaining of mild discomfort. Will continue with the same management. 2. Chronic obstructive pulmonary disease. This patient has been actually on hospice because of this, this is end-stage chronic obstructive pulmonary disease. Will continue with the same management. 3. Morbid obesity. Aware. 4. Suspected sleep apnea. Probably this patient has been on CPAP before but while this patient is here we can use the BiPAP machine. 5. History of coronary artery disease. Aware. 6. Congestive heart failure. Stable. DISPOSITION: Today the community mental health social worker and I talked to the and the patient and they want to go to a rehab center before going home with hospice.
[2016-11-05] MEDS: XOPENEX NEB INH SCH ×7 (00:02→23:33)
[2016-11-05] MEDS: ATROVENT NEB INH SCH ×7 (00:02→23:33)
[2016-11-05] MEDS: PERIDEX MT SCH ×3 (01:03→22:47)
[2016-11-05] MEDS: OXY IR PO PRN ×6 (01:04→22:50)
[2016-11-05] MEDS: TYLENOL PO SCH ×4 (01:04→22:47)
[2016-11-05] MEDS: COLACE PO SCH ×2 (01:04→22:47)
[2016-11-05] MEDS: COREG PO SCH ×3 (01:05→22:47)
[2016-11-05] MEDS: HUMULIN R SUBQ SCH ×5 (01:05→23:31)
[2016-11-05] MEDS: NS 1,000 ML IV SCH ×3 (06:04→22:55)
[2016-11-05] MEDS: PRILOSEC PO SCH ×2 (06:05→19:02)
[2016-11-05] MEDS: XARELTO PO SCH (06:05)
[2016-11-05 06:12] LABS: MANUAL DIFF NEEDED? NO
[2016-11-05 06:18] LABS: BASO% 0.3 % (0.0-0.8); EOS# 0.35 X1000 (0.0-0.7); EOS% 3.3 % (0.0-10.0); HEMATOCRIT 36.2 % (42.0-52.0); HEMOGLOBIN 11.7 g/dL (14.0-18.0); IMM GRAN# 0.05 X1000 (0.0-0.04); IMM GRAN% 0.5 % (0.0-0.5); LYMPH# 1.19 X1000 (1.2-3.4); LYMPH% 11.3 % (20.5-51.1); MCH 29.8 PG (27-31); MCHC 32.3 g/dL (33-37); MCV 92.1 FL (81-99); MONO# 1.22 X1000 (0.11-0.59); MONO% 11.6 % (1.7-9.3); MPV 11.1 FL (7.4-10.4); PLT 132 X1000 (130-400); RBC 3.93 XMIL (4.7-6.1)
[2016-11-05 06:36] LABS: AGAP 11; ALBUMIN 2.7 g/dL (3.5-5.0); ALKALINE PHOSPHATASE 62 U/L (32-122); BUN 11 mg/dL (8-22); CHLORIDE 105 mmol/L (98-107); COSMO 284; GOT 27 U/L (10-34); GPT 12 U/L (10-44); POTASSIUM 4.1 mmol/L (3.5-5.1); SODIUM 140 mmol/L (136-145); TCO2 24 mmol/L (25-35); TOTAL BILIRUBIN 0.93 mg/dL (0.20-1.00); TOTAL PROTEIN 5.6 g/dL (6.3-8.3)
[2016-11-05] MEDS: MUCOMYST 20% INH SCH ×2 (08:00→20:45)
[2016-11-05] MEDS: PULMICORT INH SCH ×2 (08:00→20:45)
[2016-11-05] MEDS: FERROUS SULFATE PO SCH (09:00)
[2016-11-05] MEDS: LIPITOR PO SCH (09:47)
[2016-11-05] MEDS: SINGULAIR PO SCH (09:48)
[2016-11-05] MEDS: FLOMAX PO SCH (09:48)
[2016-11-05] MEDS: LANTUS SUBQ SCH (10:40)
--- NOTE | 2016-11-05 11:16 | PROGRESS NOTE ---
DATE: 11/05/2016 SUBJECTIVE: The patient is a 76-year-old male who is postop day #2 status post intramedullary nailing of the right femur per Dr. Patten. OBJECTIVE: Extremities: On physical exam, the patient's right lower extremity dressing is intact. He has expected swelling. His calf is soft. LABS: His hemoglobin is 11.7, hematocrit is 36.2. IMPRESSION: Postop day #2 status post intramedullary nailing right femur. PLAN: At this point, we will progress with physical therapy. Agricultural Purchasing Agent has been consulted for discharge planning.
[2016-11-05] MEDS: LEVAQUIN 500 MG/D5W 100 ML IV SCH (12:05)
--- NOTE | 2016-11-05 12:15 | Diag Imaging Result Document ---
PROCEDURE NAME: CHEST-1 VIEW - 11/05/2016 SINGLE FRONTAL RADIOGRAPH OF THE CHEST: COMPARISON: 11/03/2016. FINDINGS: Atelectasis and/or infiltrate at the right lung base appears to have slightly worsened during the interval. No other new consolidations are identified. Cardiac silhouette is stable. IMPRESSION: Worsening mild right basilar atelectasis and/or infiltrate.
--- NOTE | 2016-11-05 17:08 | PROGRESS NOTE ---
DATE: 11/05/2016 SUBJECTIVE: The patient states that he is feeling fine. He is still complaining of shortness of breath. Family members at the bedside. Apparently he had a small bowel movement today. The plan is to continue with physical therapy and the possibility of rehab center before going home. OBJECTIVE: Vital Signs: Temperature 98.4 degrees, pulse 81, respiratory rate 21, blood pressure 117/58, O2 saturation 96% on a Venturi mask. HEENT: Head normocephalic. No trauma. PERRLA. Neck: Supple. No JVD. No masses. Central trachea. Chest: Decreased air entry bilaterally, prolonged expiratory phase, scattered wheezing. No rales. No rhonchi. Cardiovascular: RRR. No murmurs. Abdomen: Soft, distended. Nontender to palpation, and positive bowel sounds. Extremities: Right lower extremity looks a little bit more swollen compared with the left, and also is tender, the wounds look clean, no signs of bleed. LABORATORY: WBC 10.5, hemoglobin 11.7, hematocrit 36.2, platelets 132,000. Sodium 140, potassium 4.1, chloride 105, bicarbonate 24, BUN 11, creatinine 1, glucose 194, calcium 8, albumin 2.7. ASSESSMENT AND PLAN: 1. Right mid shaft femur fracture. This patient has been evaluated by the Orthopedic surgery and they went for surgery 2 days ago. They placed a right long trochanteric fixation nail. This patient is complaining of mild discomfort. We will continue with the same management. Physical therapy has been consulted, also the high school social science teacher for placement. 2. Chronic obstructive pulmonary disease. It looks like this is an end-stage chronic obstructive pulmonary disease. This patient actually he has been on hospice because of this. We will continue with the same management for now. He is requiring a Venturi mask for now. 3. Morbid obesity. Aware. 4. Suspected sleep apnea. Probably this patient has been on CPAP at home, but he is using a BiPAP machine here. 5. History of coronary artery disease. Aware. 6. Congestive heart failure. Stable. 7. Disposition. I already talked to the high school social science teacher about placement, the family wants to send this patient to a rehab center before going home probably with hospice.
[2016-11-05] MEDS ORDERED: LASIX PO ONE (23:09)
[2016-11-05] MEDS ORDERED: NS 1,000 ML IV SCH (23:12)
[2016-11-06] MEDS: TYLENOL PO SCH ×4 (03:39→18:38)
[2016-11-06] MEDS: ATROVENT NEB INH SCH ×6 (04:16→23:52)
[2016-11-06] MEDS: XOPENEX NEB INH SCH ×6 (04:17→23:52)
[2016-11-06 06:19] LABS: MANUAL DIFF NEEDED? NO
[2016-11-06 06:25] LABS: BASO% 0.2 % (0.0-0.8); EOS# 0.22 X1000 (0.0-0.7); EOS% 1.8 % (0.0-10.0); HEMATOCRIT 37.7 % (42.0-52.0); HEMOGLOBIN 11.8 g/dL (14.0-18.0); IMM GRAN# 0.05 X1000 (0.0-0.04); IMM GRAN% 0.4 % (0.0-0.5); LYMPH# 1.26 X1000 (1.2-3.4); LYMPH% 10.6 % (20.5-51.1); MCH 28.9 PG (27-31); MCHC 31.3 g/dL (33-37); MCV 92.2 FL (81-99); MONO# 1.55 X1000 (0.11-0.59); MPV 10.7 FL (7.4-10.4); PLT 150 X1000 (130-400); RBC 4.09 XMIL (4.7-6.1)
[2016-11-06] MEDS: XARELTO PO SCH (06:39)
[2016-11-06] MEDS: PRILOSEC PO SCH ×2 (06:39→18:38)
[2016-11-06] MEDS: HUMULIN R SUBQ SCH ×4 (06:40→21:53)
[2016-11-06 06:49] LABS: CALCIUM 8.5 mg/dL (8.8-10.2); POTASSIUM 4.2 mmol/L (3.5-5.1)
[2016-11-06] MEDS: PULMICORT INH SCH ×2 (07:45→20:09)
[2016-11-06] MEDS: MUCOMYST 20% INH SCH ×2 (07:45→20:10)
[2016-11-06] MEDS: FERROUS SULFATE PO SCH (08:10)
[2016-11-06] MEDS: SINGULAIR PO SCH (08:10)
[2016-11-06] MEDS: LIPITOR PO SCH (08:10)
[2016-11-06] MEDS: PERIDEX MT SCH ×2 (08:10→21:56)
[2016-11-06] MEDS: FLOMAX PO SCH (08:11)
[2016-11-06] MEDS: COREG PO SCH ×2 (08:11→21:54)
[2016-11-06] MEDS: LANTUS SUBQ SCH (08:12)
--- NOTE | 2016-11-06 08:17 | PROGRESS NOTE ---
DATE: 11/06/2016 SUBJECTIVE: The patient is a pleasant, 76-year-old male who is 3 days status post intramedullary nailing of the right femur. He is currently complaining of some pain and discomfort this morning. PHYSICAL EXAMINATION: The patient's right lower extremity dressing is intact. There is diffuse swelling. His calf is soft. He is able to actively dorsiflex and plantar flex his foot. LABORATORIES: His hemoglobin is 11.8 and hematocrit is 37.7. IMPRESSIONS: Postoperative day #3 status post intramedullary nailing of the right femur. PLAN: At this point patient will continue with physical therapy. environmental services supervisor has been consulted for discharge planning.
--- NOTE | 2016-11-06 09:57 | Diag Imaging Result Document ---
PROCEDURE NAME: CHEST-1 VIEW - 11/06/2016 SINGLE FRONTAL RADIOGRAPH OF THE CHEST: COMPARISON: 11/05/2016. FINDINGS: Inspiration is slightly better than the previous study. Atelectasis and/or infiltrate at the lung bases appear to have improved. No new consolidations are identified. Cardiac silhouette is stable. IMPRESSION: Interval improvement.
[2016-11-06] MEDS: LEVAQUIN 500 MG/D5W 100 ML IV SCH (10:56)
[2016-11-06] MEDS: MORPHINE IV PRN ×3 (11:16→18:38)
[2016-11-06] MEDS ORDERED: LASIX IV ONE (11:40)
--- NOTE | 2016-11-06 20:21 | PROGRESS NOTE ---
DATE: 11/06/2016 SUBJECTIVE: This patient states that he is feeling fine. He has been having generalized crackles. I will ask for Lasix IV 40 mg x1, and also I will put this patient on suppository daily before bed. He is still using the Venturi mask. OBJECTIVE: Vital Signs: Temperature 98.8 degrees, pulse 90, respiratory rate 24, blood pressure 138/72, O2 saturation 90% on a mask. HEENT: Head normocephalic. No trauma. PERRLA. Neck: Supple. No JVD. No masses. Central trachea. Chest: Decreased air entry bilaterally, prolonged expiratory phase. Scattered wheezing and generalized crackles. Cardiovascular: Regular rhythm and rate. No murmurs. Abdomen: Soft, distended. Nontender to palpation. Positive bowel sounds. Extremities: Right lower extremity looks a little bit more swollen compared with the left one and also it is really tender close to the wound. The wound looks clean. No signs of bleed. LABORATORY: WBC 11.3, hemoglobin 11.8, hematocrit 37.7, platelet 150,000. Sodium 144, potassium 4.2, chloride 103, bicarbonate 28, BUN 12, creatinine 1.2, glucose 182, calcium 8.5. ASSESSMENT AND PLAN: 1. Right midshaft femur fracture, Orthopedic Surgery placed a right long trochanteric fixation nail. This patient is complaining of mild discomfort. We will continue with the same management. Physical Therapy is on board and also a social service director has been consulted for placement. 2. End-stage chronic obstructive pulmonary disease. This patient has been on hospice before. The plan for now is to send this patient to a rehab center, but the oxygen saturation has been low on nasal cannula and he has been using a mask, and also a Venturi mask. We will continue with respiratory treatment and pulmonary toilet as well. 3. Suspected sleep apnea. Aware. 4. History of coronary artery disease. Aware. 5. Congestive heart failure. Stable, but today this patient was having generalized crackles, so I recommended 1 time dose of Lasix 40 mg intravenously. 6. Disposition. I already talked to the social service director about placement, and also the order was placed by Orthopedic Surgery. Probably this patient is going to a rehab placement and after that, probably home with hospice.
[2016-11-06] MEDS: COLACE PO SCH (21:54)
[2016-11-07] MEDS: XOPENEX NEB INH SCH ×6 (03:30→23:54)
[2016-11-07] MEDS: ATROVENT NEB INH SCH ×6 (03:39→23:54)
[2016-11-07] MEDS: MORPHINE IV PRN ×2 (05:24→07:46)
[2016-11-07] MEDS: PRILOSEC PO SCH ×3 (05:25→21:34)
[2016-11-07] MEDS: TYLENOL PO SCH ×2 (05:25→12:11)
[2016-11-07] MEDS: XARELTO PO SCH (05:25)
[2016-11-07 05:50] LABS: MANUAL DIFF NEEDED? NO
[2016-11-07 06:01] LABS: BASO% 0.3 % (0.0-0.8); EOS# 0.26 X1000 (0.0-0.7); EOS% 2.7 % (0.0-10.0); HEMOGLOBIN 11.2 g/dL (14.0-18.0); IMM GRAN# 0.04 X1000 (0.0-0.04); IMM GRAN% 0.4 % (0.0-0.5); LYMPH# 1.02 X1000 (1.2-3.4); LYMPH% 10.5 % (20.5-51.1); MCH 29.1 PG (27-31); MCHC 31.1 g/dL (33-37); MCV 93.5 FL (81-99); MONO# 1.23 X1000 (0.11-0.59); MONO% 12.6 % (1.7-9.3); MPV 10.7 FL (7.4-10.4); NEUT% 73.5 % (42.2-75.2); PLT 161 X1000 (130-400); RBC 3.85 XMIL (4.7-6.1)
[2016-11-07 06:11] LABS: CALCIUM 8.4 mg/dL (8.8-10.2); POTASSIUM 3.8 mmol/L (3.5-5.1)
[2016-11-07] MEDS: HUMULIN R SUBQ SCH ×4 (06:28→21:35)
--- NOTE | 2016-11-07 06:45 | Diag Imaging Result Document ---
PROCEDURE NAME: CHEST-1 VIEW - 11/07/2016 PORTABLE CHEST: COMPARISON: Compared to 11/06/2016. FINDINGS: The lungs are well expanded. The heart is not enlarged. There are increased interstitial markings bilaterally. These are slightly more pronounced than on the prior exam. No pleural effusions identified. IMPRESSION: Mild interval worsening.
--- NOTE | 2016-11-07 06:47 | PROGRESS NOTE ---
DATE: 11/07/2016 SUBJECTIVE: Jairo Brady is a 76-year-old male who is postoperative day 4 from a right trochanteric fixation nail placement. He has no new complaints. He does complain of continued pain and has made slow progress with physical therapy. OBJECTIVE: He is a well-developed, well-nourished male. He is alert and cooperative with the exam. His vital signs are stable. He is afebrile. His hematocrit is 36%, his hemoglobin is 11.2. His creatinine is 1.2 as well. His incisions are clean, dry, and intact without sign of infection. His calf is soft. His leg is neurovascularly intact without sign of a deep venous thrombosis. ASSESSMENT: Postoperative day 4 from a right trochanteric fixation nail placement. PLAN: We will continue working with him with physical therapy. He can be transferred to rehab at any time. We would like to see him back in the office in 2 weeks.
[2016-11-07] MEDS: MUCOMYST 20% INH SCH ×2 (08:11→19:10)
[2016-11-07] MEDS: PULMICORT INH SCH ×2 (08:12→19:10)
[2016-11-07] MEDS: FERROUS SULFATE PO SCH (08:59)
[2016-11-07] MEDS: LIPITOR PO SCH (09:02)
[2016-11-07] MEDS: SINGULAIR PO SCH (09:02)
[2016-11-07] MEDS: FLOMAX PO SCH ×2 (09:04→21:34)
[2016-11-07] MEDS: DULCOLAX PR SCH (09:05)
[2016-11-07] MEDS: PERIDEX MT SCH ×2 (09:05→21:34)
[2016-11-07] MEDS: LANTUS SUBQ SCH (09:06)
[2016-11-07] MEDS: COREG PO SCH ×2 (09:11→21:35)
[2016-11-07 10:04] LABS: ALLEN TEST YES; BE 5.5 mmoll (-3.0-3.0); BLOOD TYPE ARTERIAL; DRAW SITE R RADIAL; METHB 1.2 % (0.0-1.5); O2(CT) 14.4 mL/dL (15.0-23.0); PCO2(98.6) 49 mmHg (35-45); PO2(98.6) 63 mmHg (60-100); SAMPLE BLOOD; SAO2 98.4 % (95.0-100.0); pH(98.6) 7.41 (7.35-7.45)
[2016-11-07 10:05] LABS: MODALITY VENTIMASK
[2016-11-07] MEDS: LEVAQUIN 500 MG/D5W 100 ML IV SCH (12:10)
[2016-11-07] MEDS: OXY IR PO PRN ×2 (12:55→17:02)
--- NOTE | 2016-11-07 14:42 | Diag Imaging Result Document ---
PROCEDURE NAME: CT THORAX W/O CONTRAST - 11/07/2016 CT CHEST: A CT dose reduction protocol was used. COMPARISON: Numerous previous chest x-rays. FINDINGS: There is moderate COPD. There is extremely advanced calcified coronary artery disease. There are trace pleural effusions. There is a lobular liver compatible with cirrhosis. There are a couple of hypodensities stable from the CT from 09/22/15. These are likely benign entities, such as hemangiomas. There is some trace dependent atelectasis in the lung bases but no significant infiltrates or edema. There are granulomas in the right lower lobe. There is possible bilateral hydronephrosis. Bony structures are intact. IMPRESSION: 1. Possible bilateral hydronephrosis. Renal imaging recommended. 2. Hepatic cirrhosis, stable benign-appearing nodules in the liver. 3. COPD. 4. Trace pleural effusions and some patchy bibasilar atelectasis, but no pneumonia or significant edema. [facility]
--- NOTE | 2016-11-07 15:30 | Diag Imaging Result Document ---
PROCEDURE NAME: ABDOMEN/PELVIS W/O CONTRAST - 11/07/2016 CT ABDOMEN PELVIS: A CT dose reduction protocol was used. COMPARISON: None. FINDINGS: There is a recently placed right femoral neck stabilization bijan. There is mild bilateral hydronephrosis and hydroureter. The urinary bladder is distended. Prostate and rectum are grossly normal. Stable abnormal liver. Stable severe fatty atrophy of the pancreas. No bowel obstruction or inflammation. There is heavy peripheral vascular disease as well as calcification all throughout all of the abdominal aorta. The abdominal aorta measures up to 3.4 cm. IMPRESSION: 1. Dilation of the renal collecting systems, ureters, and urinary bladder. This suggests urinary bladder outlet obstruction. 2. Other chronic changes as described above. [facility]
--- NOTE | 2016-11-07 16:16 | PROGRESS NOTE ---
DATE: 11/07/2016 SUBJECTIVE: The patient is sitting up in bed. He is currently receiving a bronchodilator treatment. He was on the Ventimask overnight. OBJECTIVE: Vital Signs: Temperature 98.6 degrees, blood pressure 124/74, heart rate 75, respirations 18, O2 saturations 93% on Ventimask. General: This is a chronically ill-appearing, elderly male, lying in bed, in no acute distress. Head: Normocephalic, atraumatic. Heart: S1, S2. Normal. Regular rate and rhythm. Lungs: Coarse breath sounds with crackles. Abdomen: Positive bowel sounds. Soft, nontender, nondistended. Extremities: No edema. No cyanosis. No calf tenderness. Neurologic: The patient is awake and alert. LABORATORY: White blood cell count 9.7, hemoglobin 11, hematocrit 36, platelets 161,000. Sodium 146, potassium 3.8, BUN 18, creatinine 1.2, glucose 151. ASSESSMENT AND PLAN: 1. Acute on chronic hypoxemic respiratory failure. The patient's x-ray does show some pulmonary edema. The patient has been started on Lasix per the bi consultant. We will continue to try and wean the patient off of the Ventimask. 2. Pulmonary edema. The patient on IV Lasix. 3. Status post right femur fixation nail placement. Continue with physical therapy. The patient will need to go to rehab once his pulmonary status improves. 4. Chronic obstructive pulmonary disease. Continue on the current medications. 5. Obstructive sleep apnea. Aware. 6. Acute congestive heart failure exacerbation. Continue on IV Lasix. 7. Disposition. Once the patient's pulmonary status improved, he will be discharged to rehab.
[2016-11-07] MEDS ORDERED: PERCOCET-5 ONE (16:51)
[2016-11-07] MEDS: COLACE PO SCH (21:35)
[2016-11-08] MEDS: XOPENEX NEB INH SCH ×6 (03:06→23:05)
[2016-11-08] MEDS: ATROVENT NEB INH SCH ×6 (03:06→23:05)
[2016-11-08] MEDS: OXY IR PO PRN ×2 (05:22→15:44)
--- NOTE | 2016-11-08 05:23 | CONSULTATION ---
DATE OF CONSULTATION: 11/07/2016 ATTENDING AND REFERRING PHYSICIAN: Hospitalist. HISTORY OF PRESENT ILLNESS: This 76-year-old male was admitted on the 02 of November with a right femur fracture. He has multiple other medical problems including end-stage chronic obstructive pulmonary disease. He is on hospice. The patient was being evaluated for pneumonia with a chest CT that revealed possible bilateral hydronephrosis. An abdominal CT scan was obtained that revealed bilateral hydroureteronephrosis and bladder distention. The patient states he was having voiding problems even before he broke his leg. He is on Flomax 0.4 mg a day. He denies previous surgery to his prostate or bladder. He states he did have a vasectomy many years ago. He has no history of kidney stones or problems with urinary tract infections. He denies hematuria. PAST MEDICAL HISTORY: End-stage chronic obstructive pulmonary disease, diabetes, coronary artery disease, congestive heart failure, hypertension, elevated cholesterol, peripheral vascular disease, status post cerebrovascular accident, abdominal aortic aneurysm, peripheral neuropathy, and sleep apnea. CURRENT MEDICATIONS: Are documented on the chart. PAST SURGICAL HISTORY: Tonsillectomy and adenoidectomy, wisdom teeth extraction, and then all teeth extracted. Coronary artery stent placement, vasectomy, and bilateral inguinal hernia repairs. SOCIAL HISTORY: Cigarettes for over 65 years. He quit 5 months ago. He denies alcohol or other drug use. ALLERGIES: He has no known drug allergies. REVIEW OF SYSTEMS: He states he gets very short of breath with minimal exertion. He has no problems with seizure activity. He states he normally has normal bowel function. PHYSICAL EXAMINATION: General: An obese, age apparent, normally developed white male, who is cooperative. HEENT: Normal for age. Lungs: Clear. Cardiovascular: Regular rate and rhythm. Abdomen: Obese soft, nontender. No hepatosplenomegaly or masses. Normal bowel sounds. Genitourinary: Uncircumcised male. Both testes are down. The right leg is very tender with palpation. Rectal Examination: Deferred due to his right femur fracture. Extremities: No clubbing, cyanosis, or edema. Neurological: No focal deficits. LABORATORY EVALUATION: He has a white count 9.74, hemoglobin 11.2, hematocrit 36, platelets a 161,000. Serum electrolytes are normal. BUN 18, creatinine 1.2. Glucose was 151. The CT scan of his abdomen and pelvis again revealed bilateral hydroureteronephrosis with a distended bladder. IMPRESSION: 1. Enlarged prostate with a long history of obstructive voiding with urinary retention. 2. End-stage chronic obstructive pulmonary disease. RECOMMENDATIONS: Recommend placing Espinoza catheter to decompress the bladder (600 mL of clear yellow urine returned after the Espinoza was placed). Recommend keeping the catheter in place until he is able to stand on his own to void. Increase Flomax to 0.4 mg b.i.d. Thank you for this consultation.
[2016-11-08 05:33] LABS: MANUAL DIFF NEEDED? NO
[2016-11-08 05:52] LABS: BASO% 0.2 % (0.0-0.8); EOS# 0.45 X1000 (0.0-0.7); HEMATOCRIT 36.7 % (42.0-52.0); HEMOGLOBIN 11.3 g/dL (14.0-18.0); IMM GRAN# 0.03 X1000 (0.0-0.04); IMM GRAN% 0.3 % (0.0-0.5); LYMPH# 1.03 X1000 (1.2-3.4); LYMPH% 11.5 % (20.5-51.1); MCH 28.8 PG (27-31); MCHC 30.8 g/dL (33-37); MCV 93.6 FL (81-99); MONO% 11.1 % (1.7-9.3); MPV 10.7 FL (7.4-10.4); NEUT% 71.9 % (42.2-75.2); PLT 180 X1000 (130-400); RBC 3.92 XMIL (4.7-6.1)
[2016-11-08 06:07] LABS: CALCIUM 8.6 mg/dL (8.8-10.2); POTASSIUM 3.7 mmol/L (3.5-5.1)
[2016-11-08] MEDS: MUCOMYST 20% INH SCH ×2 (07:31→19:25)
[2016-11-08] MEDS: PULMICORT INH SCH ×2 (07:32→19:25)
[2016-11-08] MEDS: XARELTO PO SCH (08:04)
[2016-11-08] MEDS: PRILOSEC PO SCH ×2 (08:04→18:48)
[2016-11-08] MEDS: HUMULIN R SUBQ SCH ×4 (08:04→21:19)
[2016-11-08] MEDS: DULCOLAX PR SCH (08:08)
[2016-11-08] MEDS: FLOMAX PO SCH ×2 (08:09→21:19)
[2016-11-08] MEDS: LASIX IV SCH (08:09)
[2016-11-08] MEDS: SINGULAIR PO SCH (08:09)
[2016-11-08] MEDS: PERIDEX MT SCH ×2 (08:09→21:18)
[2016-11-08] MEDS: FERROUS SULFATE PO SCH (08:09)
[2016-11-08] MEDS: COREG PO SCH ×2 (08:09→21:19)
[2016-11-08] MEDS: LIPITOR PO SCH (08:09)
[2016-11-08] MEDS: LANTUS SUBQ SCH (08:12)
[2016-11-08] MEDS: LEVAQUIN 500 MG/D5W 100 ML IV SCH (11:41)
[2016-11-08] MEDS: MORPHINE IV PRN (12:34)
--- NOTE | 2016-11-08 16:23 | PROGRESS NOTE ---
DATE: 11/08/2016 SUBJECTIVE: The patient remains on a Ventimask. He is having regular bowel movements. OBJECTIVE: Vital Signs: Temperature 98.0 degrees, blood pressure 130/68, heart rate 85, respirations 18, O2 saturations 95% on 15 L Ventimask. General: This is a morbidly obese male, lying in bed, in no acute distress. Head: Normocephalic, atraumatic. Heart: S1, S2. Normal. Regular rate and rhythm. Lungs: Coarse breath sounds bilaterally. Abdomen: Positive bowel sounds. Soft, obese, nontender, nondistended. Extremities: +1 edema. No cyanosis. No calf tenderness. Neuro: The patient is alert and oriented x3. LABS: White blood cell count 8.9, hemoglobin 11, hematocrit 36, platelets 188, 000. Sodium 147, potassium 3.7, chloride 105, CO2 31, BUN 21, creatinine 1.3, glucose 154. ASSESSMENT AND PLAN: 1. Acute on chronic hypoxemic respiratory failure. Continue on bronchodilator therapy and diuretic therapy. Pulmonary is following. 2. Acute chronic obstructive pulmonary disease exacerbation. Continue on bronchodilator therapy and antibiotics. 3. Liver cirrhosis. GI consult. Hepatitis panel is pending. 4. Enlarged prostate with urinary retention. The patient has a Espinoza catheter in place and his Flomax was increased by the urologist. 5. Obstructive sleep apnea. Aware. 6. Status post right femur fixation nail placement. Continue with physical therapy as able. 7. Deep vein thrombosis prophylaxis. Continue on Xarelto. 8. Disposition. The patient will be discharged to rehab once medically stable. [facility]
[2016-11-08] MEDS: COLACE PO SCH (21:19)
[2016-11-09] MEDS: MORPHINE IV PRN ×2 (01:57→06:41)
[2016-11-09] MEDS: XOPENEX NEB INH SCH ×6 (03:08→23:00)
[2016-11-09] MEDS: ATROVENT NEB INH SCH ×6 (03:08→23:00)
[2016-11-09] MEDS: OXY IR PO PRN ×4 (04:36→16:41)
[2016-11-09 06:08] LABS: MANUAL DIFF NEEDED? NO
[2016-11-09 06:17] LABS: BASO% 0.2 % (0.0-0.8); EOS# 0.36 X1000 (0.0-0.7); EOS% 4.1 % (0.0-10.0); HEMATOCRIT 35.6 % (42.0-52.0); HEMOGLOBIN 11.1 g/dL (14.0-18.0); IMM GRAN# 0.05 X1000 (0.0-0.04); IMM GRAN% 0.6 % (0.0-0.5); LYMPH# 1.27 X1000 (1.2-3.4); LYMPH% 14.3 % (20.5-51.1); MCH 29.1 PG (27-31); MCHC 31.2 g/dL (33-37); MCV 93.2 FL (81-99); MONO# 1.05 X1000 (0.11-0.59); MONO% 11.9 % (1.7-9.3); MPV 10.4 FL (7.4-10.4); NEUT% 68.9 % (42.2-75.2); PLT 191 X1000 (130-400); RBC 3.82 XMIL (4.7-6.1)
[2016-11-09] MEDS: PRILOSEC PO SCH ×2 (06:24→18:16)
[2016-11-09] MEDS: XARELTO PO SCH (06:24)
[2016-11-09 06:49] LABS: CALCIUM 8.5 mg/dL (8.8-10.2); POTASSIUM 3.3 mmol/L (3.5-5.1)
[2016-11-09] MEDS ORDERED: KLOR-CON PO ONE (07:05)
[2016-11-09] MEDS: MUCOMYST 20% INH SCH ×2 (07:28→20:02)
[2016-11-09] MEDS: PULMICORT INH SCH ×2 (07:29→20:02)
[2016-11-09] MEDS: HUMULIN R SUBQ SCH ×4 (07:58→21:59)
[2016-11-09] MEDS: FERROUS SULFATE PO SCH (07:59)
[2016-11-09] MEDS: SINGULAIR PO SCH (08:00)
[2016-11-09] MEDS: LANTUS SUBQ SCH (08:00)
[2016-11-09] MEDS: LASIX IV SCH (08:00)
[2016-11-09] MEDS: COREG PO SCH ×2 (08:00→21:58)
[2016-11-09] MEDS: DULCOLAX PR SCH (08:00)
[2016-11-09] MEDS: PERIDEX MT SCH ×2 (08:00→21:58)
[2016-11-09] MEDS: LIPITOR PO SCH (08:00)
[2016-11-09] MEDS: FLOMAX PO SCH ×2 (08:00→21:58)
[2016-11-09] MEDS: LEVAQUIN 500 MG/D5W 100 ML IV SCH (11:34)
--- NOTE | 2016-11-09 11:59 | PROGRESS NOTE ---
DATE: 11/09/2016 SUBJECTIVE: Jairo Brady is a 76-year-old male who is postoperative day 6 from a right femoral nail. He has no complaints. He is sitting in a chair today. Much better as far as pain is concerned. OBJECTIVE: He is a well-developed, well-nourished male. He is alert, oriented, and cooperative with the exam. His leg is neurovascularly intact with palpable pulses. Brisk capillary refill. Intact sensation to light touch. His calf is soft. His wounds are clean, dry, intact without sign of infection. His hematocrit is 35.6%. His hemoglobin is 11.1. ASSESSMENT: Stable postoperative day 6 visit from a right femur fracture. PLAN: He can be transferred to rehab when cleared medically. He should return to see me once discharged from rehab. They can remove his kenrick in his leg in 10 days.
[2016-11-09 13:10] LABS: HEPATITIS PROFILE ACUTE SEE COMMENTS (())
--- NOTE | 2016-11-09 14:02 | PROGRESS NOTE ---
DATE: 11/09/2016 SUBJECTIVE: The patient is sitting up in a chair eating breakfast. He states that he feels a lot better today. He does remain on a Ventimask. OBJECTIVE: General: This is a morbidly obese male, sitting up in a chair in no acute distress. Head: Normocephalic, atraumatic. Heart: S1, S2. Normal. Regular rate and rhythm. Lungs: Clear to auscultation bilaterally. No crackles. No rales. Abdomen: Positive bowel sounds. Soft, nontender, nondistended. Extremities: No edema. No cyanosis. No calf tenderness. Neurologic: The patient is alert and oriented x3. LABS: White blood cell count 8.8, hemoglobin 11, hematocrit 35, platelets 191,000. Sodium 143, potassium 3.3, chloride 100, CO2 32, BUN 18, creatinine 1.2, glucose 157, calcium 8.5. ASSESSMENT AND PLAN: 1. Acute on chronic hypoxemic respiratory failure. Continue on bronchodilator therapy plus diuretic therapy. Pulmonary is following. We are trying to wean the patient down to nasal cannula. 2. Liver cirrhosis. The patient's hepatitis profile came back positive for hepatitis C. The patient will follow up as outpatient with Dr. Santiago for further treatment and evaluation. 3. Enlarged prostate with urinary retention. Continue with the Espinoza catheter as directed by the urologist. Patient is currently on Flomax. 4. Status post right femur fixation nail placement. Continue with physical therapy. 5. Obstructive sleep apnea. Aware. 6. Deep vein thrombosis prophylaxis. Continue on Xarelto. 7. Disposition. The patient will be discharged to rehab once he is stable from a respiratory standpoint.
--- NOTE | 2016-11-09 20:59 | CONSULTATION ---
DATE OF CONSULTATION: 11/08/2016 REFERRING PHYSICIAN: Lourdes Phelps M.D. PRIMARY ORTHOPEDIC SURGEON: Dawson Patten M.D. PRIMARY CARE PHYSICIAN: None. INDICATION FOR PROCEDURE: Cirrhosis on computed tomography scan of the abdomen and pelvis. HISTORY OF PRESENT ILLNESS: The patient is a 76-year-old male who is admitted on November 02 after a traumatic fall resulting in a right femur fracture. He underwent surgery on the emergently. His postop course has been complicated by a chronic obstructive pulmonary disease. He was also diagnosed with pneumonia on CT scan. Incidentally, he was found to have bilateral hydronephrosis as well as severe fatty liver consistent with cirrhosis. We are asked to assist in his care and help to identify the cause of his cirrhosis. The patient denies a history of alcohol, tobacco or recreational drug use. He reports he has been overweight for most of his life. Although his weight has been stable, he does have a history of a high carbohydrate, high fat diet. PAST MEDICAL HISTORY: 1. COPD. 2. Diabetes. 3. Coronary artery disease. 4. Congestive heart failure. 5. Hypertension. 6. Hyperlipidemia. 7. Peripheral vascular disease. 8. CVA. 9. Aortic abdominal aneurysm. 10. Diabetic peripheral neuropathy. 11. Sleep apnea. 12. Bilateral hydronephrosis. 13. Gastroesophageal reflux disease. PAST SURGICAL HISTORY: 1. Tonsillectomy and adenoidectomy. 2. [place] teeth extraction. 3. Total dental extraction. 4. Coronary artery stent placement. 5. Vasectomy. 6. Bilateral inguinal hernia repair. SOCIAL HISTORY: Remarkable for tobacco use of 3-5 packs per day for over 65 years. He quit smoking approximately 5 months prior to admission. He denies alcohol or other drug use. ALLERGIES: He has no known medication allergies. MEDICATIONS AT HOME: 1. Flomax. 2. Januvia. 3. Potassium chloride. 4. Prilosec. 5. Singulair. 6. Metformin. 7. Glucotrol. 8. Lasix. 9. Plavix. 10. Coreg. 11. Lipitor. 12. ProAir nebulizer. 13. Albuterol metered-dose inhaler. REVIEW OF SYSTEMS: Remarkable for significant dyspnea. He denies abdominal pain, chest pain, fever chills. He denies right upper quadrant pain. He denies ever undergoing a previous screening colonoscopy. PHYSICAL EXAMINATION: Vital signs: On exam, his blood pressure is in. 130/68, pulse of 85, respiration 18, temperature of 98 degrees. His oxygenation is 93% on Venturi mask. HEENT: Remarkable for clear sclerae with no evidence of jaundice. His conjunctivae are normal. His oropharyngeal mucosal membranes are slightly dry. He did intermittently where Venturi mask throughout the history and physical. Pulmonary: His breath sounds are coarse with occasional end- expiratory wheeze. He is somewhat tachypneic while talking. He has normal respirations at rest. Cardiovascular: Reveals regular rate and rhythm with no gallops or rubs. Abdominal: Reveals normoactive bowel sounds. The abdomen is soft, nontender, with central obesity. Extremities: Bilaterally are negative for cyanosis, clubbing, or edema. There are changes on his skin consistent with stasis dermatitis in the past, although there is an absence of edema at this time. OBJECTIVE DATA: Remarkable for hemoglobin of 11.3 with hematocrit of 36.7, and a white count of 8.97. He has 180,000 platelets. Sodium is 147, potassium 3.7, chloride 105, CO2 31, BUN 21, creatinine 1.3 with a glucose of 154. Calcium is 8.6. His hepatitis profile is positive for hepatitis C, but is otherwise unremarkable. IMPRESSION: 1. Probable cirrhosis. 2. Fatty liver. 3. Hepatitis C. 4. Central morbid obesity. 5. No history of a previous screening colonoscopy. RECOMMENDATION: 1. The patient has requested deferral of his evaluation until he is an outpatient. 2. I will schedule the patient for an outpatient esophagogastroduodenoscopy and colonoscopy after he recovers from his chronic obstructive pulmonary disease exacerbation. 3. Please check a hepatitis C, RNA and genotype in light of his positive hepatitis C. We will determine the appropriateness of treating him based on how he responds to the chronic obstructive pulmonary disease exacerbation. 4. Additional recommendations will follow based on his clinical course and his impact his recovery from his chronic obstructive pulmonary disease exacerbation. 5. I will ask the primary care team to clarify his status as there is documentation in his chart that he plans to be in hospice. If this is the case, he is not a candidate for treatment and I would not pursue evaluation. If he is not in hospice and desires a full evaluation which the patient seemed to be suggesting at the time of our interview, we will plan to pursue this as an outpatient. 6. We will follow along in the distance. Please feel free to contact us if you have any additional questions. [facility]
[2016-11-09] MEDS: COLACE PO SCH (21:58)
[2016-11-10] MEDS: MORPHINE IV PRN ×2 (03:40→20:39)
[2016-11-10] MEDS: XOPENEX NEB INH SCH ×6 (03:47→22:59)
[2016-11-10] MEDS: ATROVENT NEB INH SCH ×6 (03:47→22:59)
[2016-11-10] MEDS: HUMULIN R SUBQ SCH ×4 (05:59→20:46)
[2016-11-10] MEDS: XARELTO PO SCH (06:04)
[2016-11-10] MEDS: PRILOSEC PO SCH ×2 (06:05→18:34)
[2016-11-10 06:11] LABS: AGAP 12; BUN 17 mg/dL (8-22); CALCIUM 8.7 mg/dL (8.8-10.2); CHLORIDE 100 mmol/L (98-107); COSMO 291; POTASSIUM 3.7 mmol/L (3.5-5.1); SODIUM 144 mmol/L (136-145); TCO2 32 mmol/L (25-35)
[2016-11-10] MEDS: OXY IR PO PRN ×2 (06:21→11:05)
[2016-11-10] MEDS: FERROUS SULFATE PO SCH (08:21)
[2016-11-10] MEDS: PERIDEX MT SCH ×2 (08:21→20:35)
[2016-11-10] MEDS: DULCOLAX PR SCH (08:22)
[2016-11-10] MEDS: LANTUS SUBQ SCH (08:22)
[2016-11-10] MEDS: LIPITOR PO SCH (08:22)
[2016-11-10] MEDS: SINGULAIR PO SCH (08:22)
[2016-11-10] MEDS: LASIX IV SCH (08:22)
[2016-11-10] MEDS: COREG PO SCH ×2 (08:23→20:34)
[2016-11-10] MEDS: FLOMAX PO SCH ×2 (08:23→20:34)
[2016-11-10] MEDS: PULMICORT INH SCH ×2 (08:30→20:21)
[2016-11-10] MEDS: MUCOMYST 20% INH SCH ×2 (08:30→20:21)
--- NOTE | 2016-11-10 09:55 | Diag Imaging Result Document ---
PROCEDURE NAME: CHEST-1 VIEW - 11/10/2016 PORTABLE CHEST: COMPARISON: 11/07/2016. FINDINGS: The lungs are well expanded. The heart is borderline mildly prominent. Vascular distention is less pronounced than on the prior study. Questionable tiny right effusion. No consolidation. IMPRESSION: Overall mild interval improvement.
[2016-11-10] MEDS: LEVAQUIN PO SCH (10:46)
[2016-11-10 11:20] LABS: HCV BY PCR SEE COMMENTS (()); HCV CHARGE YES
--- NOTE | 2016-11-10 19:38 | PROGRESS NOTE ---
DATE: 11/10/2016 SUBJECTIVE: The patient is currently on nasal cannula and his saturations are anywhere from 85 to about 87% on 6 L. He states that he feels better today. OBJECTIVE: Vital Signs: Temperature 98.5 degrees, blood pressure 121/67, heart rate 81, respirations 18, O2 saturation 87% on 6 L nasal cannula. General: This is a morbidly obese male, lying in bed, in no acute distress. Head: Normocephalic atraumatic. Heart: S1, S2. Normal. Regular rate and rhythm. Lungs: Clear to auscultation bilaterally. No wheezes, no rales. No rhonchi. Abdomen: Positive bowel sounds. Soft, nontender, nondistended. Extremities: No edema. No cyanosis. No calf tenderness. Neurologic: The patient is alert and oriented x3. LABS: Reviewed. ASSESSMENT AND PLAN: 1. Acute on chronic hypoxemic respiratory failure. The patient is currently on 6 L nasal cannula and his saturations are anywhere from 85-87%. Continue with bronchodilator therapy and diuretic therapy. Pulmonary is following. 2. Liver cirrhosis. The patient will have further workup as outpatient. 3. Hepatitis C. The patient will follow up with Dr. Santiago as outpatient for further treatment discussions. 4. Enlarged prostate with urinary retention. Continue on Flomax plus the Espinoza catheter. 5. Status post right femur fixation nail placement. Continue with physical therapy. 6. Obstructive sleep apnea. Aware. 7. Deep vein thrombosis prophylaxis. Continue on Xarelto. 8. Disposition. The patient will be discharged to rehab once he is stable from a respiratory standpoint.
[2016-11-10] MEDS: COLACE PO SCH (20:34)
[2016-11-11] MEDS: ATROVENT NEB INH SCH ×6 (03:17→22:57)
[2016-11-11] MEDS: XOPENEX NEB INH SCH ×6 (03:17→22:57)
[2016-11-11 05:48] LABS: MANUAL DIFF NEEDED? NO
[2016-11-11 05:51] LABS: BASO% 0.4 % (0.0-0.8); EOS# 0.22 X1000 (0.0-0.7); EOS% 1.9 % (0.0-10.0); HEMOGLOBIN 11.6 g/dL (14.0-18.0); IMM GRAN# 0.11 X1000 (0.0-0.04); LYMPH# 1.43 X1000 (1.2-3.4); LYMPH% 12.6 % (20.5-51.1); MCH 29.3 PG (27-31); MCHC 32.2 g/dL (33-37); MCV 90.9 FL (81-99); MONO# 1.08 X1000 (0.11-0.59); MONO% 9.5 % (1.7-9.3); MPV 10.3 FL (7.4-10.4); NEUT% 74.6 % (42.2-75.2); PLT 205 X1000 (130-400); RBC 3.96 XMIL (4.7-6.1)
[2016-11-11 06:10] LABS: CALCIUM 8.7 mg/dL (8.8-10.2); POTASSIUM 3.4 mmol/L (3.5-5.1)
[2016-11-11] MEDS: PRILOSEC PO SCH ×2 (06:35→18:33)
[2016-11-11] MEDS: XARELTO PO SCH (06:36)
[2016-11-11] MEDS: HUMULIN R SUBQ SCH ×4 (06:53→21:39)
[2016-11-11] MEDS: MUCOMYST 20% INH SCH ×2 (09:22→19:57)
[2016-11-11] MEDS: PULMICORT INH SCH ×2 (09:22→19:57)
[2016-11-11] MEDS: DULCOLAX PR SCH (09:54)
[2016-11-11] MEDS: PERIDEX MT SCH ×2 (09:54→21:39)
[2016-11-11] MEDS: FERROUS SULFATE PO SCH (09:54)
[2016-11-11] MEDS: LASIX IV SCH (09:54)
[2016-11-11] MEDS: LIPITOR PO SCH (09:54)
[2016-11-11] MEDS: FLOMAX PO SCH ×2 (09:54→21:39)
[2016-11-11] MEDS: SINGULAIR PO SCH (09:54)
[2016-11-11] MEDS: COREG PO SCH ×2 (10:00→21:39)
[2016-11-11] MEDS: LEVAQUIN PO SCH (11:47)
[2016-11-11] MEDS: OXY IR PO PRN ×2 (11:47→18:33)
[2016-11-11] MEDS: LANTUS SUBQ SCH (11:47)
--- NOTE | 2016-11-11 15:14 | Extremity Venous Study ---
PROCEDURE NAME: Venous U/S Right Leg - 11/08/2016 DATE OF PROCEDURE: 11/08/2016. NAME OF PROCEDURE: Right lower extremity venous duplex and color flow imaging study. REQUESTING PHYSICIAN: Dr. Patten. OPERATOR SUPPLY: [employer]. INDICATION: Edema and pain, right lower extremity, status post hip surgery. EQUIPMENT: Polimax E-9 ultrasound system with 9 LD transducer. FINDINGS: Image in the right lower extremity venous system with comparison to the left common femoral vein were obtained in both sagittal and transverse planes. Doppler was used to evaluate veins for spontaneity, phasicity, respiratory excursion, and digital augmentation. RESULTS: No superficial or deep venous thrombosis seen. There is reflux noted in the right common femoral, right greater saphenous vein. INTERPRETATION: Reflux noted in the right common femoral, right greater saphenous vein. No obvious superficial or deep venous thrombosis in the right lower extremity.
[2016-11-11 19:43] LABS: HEPATITIS C GENOTYPE SEE COMMENTS (())
[2016-11-11] MEDS ORDERED: KLOR-CON PO ONE (19:57)
--- NOTE | 2016-11-11 20:23 | PROGRESS NOTE ---
DATE: 11/11/2016 SUBJECTIVE: The patient is sitting up in bed. He states that he feels better. He is currently on nasal cannula. OBJECTIVE: Vital Signs: Temperature 98 degrees, blood pressure 131/61, heart rate 80, respirations 20, O2 saturations 91% on 6 L nasal cannula. General: This is a morbidly obese male lying in bed in no acute distress. Head: Normocephalic, atraumatic. Heart: S1, S2. Normal. Regular rate and rhythm. Lungs: Clear to auscultation bilaterally. No crackles. No rales. Abdomen: Positive bowel sounds. Soft, nontender, nondistended. Extremities: No edema. No cyanosis. No calf tenderness. Neurologic: The patient is alert and oriented x3. LABS: White blood cell count 11, hemoglobin 11, hematocrit 36, platelets 205,000. Sodium 142, potassium 3.4, chloride 99, CO2 32, BUN 18, creatinine 1.2, glucose 161. ASSESSMENT AND PLAN: 1. Acute on chronic hypoxemic respiratory failure. The patient is now on nasal cannula. Continue with bronchodilator therapy. 2. Liver cirrhosis. The patient will be following up with Dr. Santiago once his pulmonary status improves. 3. Hepatitis C. The patient will be further assessed as outpatient. 4. Enlarged prostate with urinary retention. Continue on Flomax plus the Espinoza catheter. 5. Status post right femur fixation nail placement. Continue with physical therapy. 6. Obstructive sleep apnea. Aware. 7. Deep vein thrombosis prophylaxis. Continue on Xarelto. 8. Disposition. The patient should be stable for discharge to [facility] on Monday.
[2016-11-11] MEDS: COLACE PO SCH (21:39)
[2016-11-12] MEDS: OXY IR PO PRN ×4 (00:47→16:50)
[2016-11-12] MEDS: XOPENEX NEB INH SCH ×6 (02:53→22:51)
[2016-11-12] MEDS: ATROVENT NEB INH SCH ×6 (02:53→22:52)
[2016-11-12 05:48] LABS: MANUAL DIFF NEEDED? NO
[2016-11-12 05:49] LABS: BASO% 0.5 % (0.0-0.8); EOS# 0.33 X1000 (0.0-0.7); EOS% 3.2 % (0.0-10.0); HEMATOCRIT 37.1 % (42.0-52.0); HEMOGLOBIN 11.9 g/dL (14.0-18.0); LYMPH# 1.39 X1000 (1.2-3.4); LYMPH% 13.4 % (20.5-51.1); MCH 29.2 PG (27-31); MCHC 32.1 g/dL (33-37); MCV 90.9 FL (81-99); MONO# 1.22 X1000 (0.11-0.59); MONO% 11.8 % (1.7-9.3); MPV 10.3 FL (7.4-10.4); NEUT% 70.1 % (42.2-75.2); PLT 200 X1000 (130-400); RBC 4.08 XMIL (4.7-6.1)
[2016-11-12] MEDS ORDERED: INSULIN PEN NEEDLES ONE (06:09)
[2016-11-12] MEDS: PRILOSEC PO SCH ×2 (06:25→18:35)
[2016-11-12] MEDS: XARELTO PO SCH (06:25)
[2016-11-12] MEDS: HUMULIN R SUBQ SCH ×4 (06:53→20:30)
[2016-11-12] MEDS: PULMICORT INH SCH ×2 (07:14→19:45)
[2016-11-12] MEDS: MUCOMYST 20% INH SCH ×2 (07:14→19:45)
[2016-11-12] MEDS: LANTUS SUBQ SCH (10:09)
[2016-11-12] MEDS: FERROUS SULFATE PO SCH (10:11)
[2016-11-12] MEDS: COREG PO SCH ×2 (10:11→20:29)
[2016-11-12] MEDS: PERIDEX MT SCH ×2 (10:11→20:29)
[2016-11-12] MEDS: FLOMAX PO SCH ×2 (10:11→20:29)
[2016-11-12] MEDS: SINGULAIR PO SCH (10:11)
[2016-11-12] MEDS: LIPITOR PO SCH (10:11)
[2016-11-12] MEDS: LASIX IV SCH (10:13)
[2016-11-12] MEDS: DULCOLAX PR SCH (10:15)
[2016-11-12] MEDS: LEVAQUIN PO SCH (12:01)
--- NOTE | 2016-11-12 14:10 | PROGRESS NOTE ---
DATE: 11/12/2016 SUBJECTIVE: The patient is sitting up in bed. He states that he feels good today. He has been on nasal cannula all night. OBJECTIVE: Vital Signs: Temperature 98.6 degrees, blood pressure 101/73, heart rate 82, respirations 24 and O2 saturations 90% on 6 liters nasal cannula. General: This is an elderly male, lying in bed in no acute distress. Head: Normocephalic, atraumatic. Heart: S1, S2. Normal. Regular rate and rhythm. Lungs: Clear to auscultation bilaterally. No crackles. No rales. Abdomen: Positive bowel sounds. Soft, nontender, nondistended. Extremities: No edema. No cyanosis. No calf tenderness. Neurologic: The patient is alert and oriented x3. He is hard of hearing. LABS: White blood cell count 10, hemoglobin 11, hematocrit 37, platelets 200. Potassium 3.8, phosphorus 2.7. ASSESSMENT AND PLAN: 1. Acute on chronic hypoxemic respiratory failure. Continue on bronchodilator therapy plus supplemental oxygen. 2. Liver cirrhosis with hepatitis C. The patient will follow up with Dr. Santiago upon discharge from rehabilitation. 3. Enlarged prostate with urinary retention. Continue on Flomax plus the Espinoza catheter. The patient will follow up with Dr. Benavides upon discharge from rehabilitation. 4. Status post right femur fixation nail placement. Continue with physical therapy. 5. Obstructive sleep apnea. Aware. 6. Deep vein thrombosis prophylaxis. Continue on Xarelto. 7. Disposition: The patient should be stable for discharge to [facility] on Monday.
[2016-11-12] MEDS: COLACE PO SCH (20:29)
[2016-11-13] MEDS: ATROVENT NEB INH SCH ×6 (03:11→23:18)
[2016-11-13] MEDS: XOPENEX NEB INH SCH ×6 (03:11→23:18)
[2016-11-13] MEDS: XARELTO PO SCH (05:51)
[2016-11-13] MEDS: PRILOSEC PO SCH ×3 (05:51→18:33)
[2016-11-13 06:50] LABS: CALCIUM 8.7 mg/dL (8.8-10.2); POTASSIUM 3.8 mmol/L (3.5-5.1)
[2016-11-13] MEDS: HUMULIN R SUBQ SCH ×4 (07:01→21:53)
[2016-11-13] MEDS: MUCOMYST 20% INH SCH ×2 (07:25→20:05)
[2016-11-13] MEDS: PULMICORT INH SCH ×2 (07:26→20:05)
[2016-11-13] MEDS: DULCOLAX PR SCH (09:40)
[2016-11-13] MEDS: LANTUS SUBQ SCH (09:41)
[2016-11-13] MEDS: LASIX IV SCH (09:42)
[2016-11-13] MEDS: COREG PO SCH ×3 (09:45→21:11)
[2016-11-13] MEDS: FLOMAX PO SCH ×3 (09:45→21:11)
[2016-11-13] MEDS: LIPITOR PO SCH (09:45)
[2016-11-13] MEDS: PERIDEX MT SCH ×3 (09:45→21:11)
[2016-11-13] MEDS: SINGULAIR PO SCH (09:45)
[2016-11-13] MEDS: FERROUS SULFATE PO SCH (09:45)
[2016-11-13] MEDS: OXY IR PO PRN ×2 (10:41→19:50)
[2016-11-13] MEDS: LEVAQUIN PO SCH (11:24)
--- NOTE | 2016-11-13 15:50 | PROGRESS NOTE ---
DATE: 11/13/2016 SUBJECTIVE: The patient is resting comfortably in bed. He has no complaints at this time. He stated that he had a bowel movement and he has been able to maintain his saturations on 6 L nasal cannula at this time. OBJECTIVE: Vital Signs: Temperature 98 degrees, blood pressure 112/60, heart rate 86, respirations 20, O2 saturations 87% on 6 L nasal cannula. General: This is a morbidly obese male lying in bed in no acute distress. Head: Normocephalic, atraumatic. Heart: S1, S2. Normal. Regular rate and rhythm. Lungs: Clear to auscultation bilaterally. No wheezing. No rales. No rhonchi. Abdomen: Obese soft, nontender, nondistended. Extremities: No edema. No cyanosis. No calf tenderness. Neuro: The patient is alert and oriented x3. LABS: Sodium 140, potassium 3.8, chloride 97, CO2 33, BUN 17, creatinine 1.3, glucose 222, calcium 8.7. ASSESSMENT AND PLAN: 1. Acute on chronic hypoxemic respiratory failure. The patient is currently maintaining his O2 saturations on 6 L nasal cannula. Will continue on bronchodilator therapy. 2. Liver cirrhosis with hepatitis C. The patient will be following up with Dr. Santiago upon discharge from rehab to discuss treatment options. And further endoscopic workup. 3. Enlarged prostate with urinary retention. Will remove the patient's Espinoza catheter and do a voiding trial. If the patient is unable to void we will replace the Espinoza catheter. Continue on Flomax. The patient will need to follow up with Dr. Benavides upon discharge from rehab. 4. Status post right femur fixation with nail placement. Continue with physical therapy. The patient's kenrick will need to be removed on November 19. 5. Obstructive sleep apnea. Aware. 6. History of cerebrovascular accident. Aware. 7. Deep vein thrombosis prophylaxis. Continue on Xarelto. 8. Disposition. The patient is stable for discharge to [facility] on Monday.
[2016-11-13] MEDS: COLACE PO SCH ×2 (19:50→21:11)
[2016-11-14] MEDS: XOPENEX NEB INH SCH ×5 (03:41→23:11)
[2016-11-14] MEDS: ATROVENT NEB INH SCH ×4 (03:41→23:11)
[2016-11-14] MEDS: PRILOSEC PO SCH ×2 (06:10→20:16)
[2016-11-14] MEDS: XARELTO PO SCH (06:10)
[2016-11-14] MEDS: HUMULIN R SUBQ SCH ×5 (06:10→20:57)
[2016-11-14] MEDS: OXY IR PO PRN ×2 (06:47→11:32)
[2016-11-14 06:51] LABS: CALCIUM 8.9 mg/dL (8.8-10.2); INR 1.06; POTASSIUM 3.7 mmol/L (3.5-5.1); PROTIME 11.2 Seconds (9.2-11.7); TOTAL BILIRUBIN 1.05 mg/dL (0.20-1.00); TOTAL PROTEIN 6.5 g/dL (6.3-8.3)
[2016-11-14] MEDS: PULMICORT INH SCH ×2 (07:39→23:11)
--- NOTE | 2016-11-14 09:19 | Diag Imaging Result Document ---
PROCEDURE NAME: CHEST-1 VIEW - 11/14/2016 AP PORTABLE CHEST: TIME: 0845 hours. FINDINGS: There is atelectasis versus pneumonia in the right lower lobe. This is actually somewhat improved since 11/10/2016. IMPRESSION: Improved atelectasis versus pneumonia in the right lower lobe.
[2016-11-14] MEDS: LANTUS SUBQ SCH (09:24)
[2016-11-14] MEDS: PERIDEX MT SCH ×2 (09:24→20:19)
[2016-11-14] MEDS: FLOMAX PO SCH ×2 (09:26→20:18)
[2016-11-14] MEDS: DULCOLAX PR SCH (09:27)
[2016-11-14] MEDS: SINGULAIR PO SCH (09:27)
[2016-11-14] MEDS: LIPITOR PO SCH (09:27)
[2016-11-14] MEDS: FERROUS SULFATE PO SCH (09:27)
[2016-11-14] MEDS: COREG PO SCH ×2 (09:27→20:18)
[2016-11-14] MEDS: LEVAQUIN PO SCH (11:32)
--- NOTE | 2016-11-14 15:56 | PROGRESS NOTE ---
DATE: 11/14/2016 SUBJECTIVE: Mr. Jairo Brady is a 76-year-old, male, with continuous O2 saturation monitoring and 6 L nasal cannula. His baseline saturations, even at home, are anywhere from 85- 91. He states he feels pretty good. He is requesting to be able to get out of the hospital and go to rehab. He has no complaints at this time. OBJECTIVE: Vital Signs: Temperature 97.4 degrees, heart rate 80, respiratory rate 16, blood pressure 104/57, O2 saturation over the last 24 hours has been anywhere from 87-90% on 6 L nasal cannula. General Appearance: In general, Mr. Brady is a 76-year-old male, in no acute distress. Able to answer all questions appropriately Cardiovascular: S1, S2. Regular rate and rhythm. No rubs, gallops, murmurs. Pulmonary: Clear to auscultation. Bilateral breath sounds. Decreases in bases. No accessory muscle use or work of breathing noted. Currently on 6 L nasal cannula. Gastrointestinal: Soft, nontender, obese. Nondistended. Positive bowel sounds x4. Extremities: Trace edema. +2 dorsalis pedal pulses. LABORATORY DATA: On 11/12/2016 white blood cells 10,000, hemoglobin 11, hematocrit 37, platelet count 200,000. On 11/14/2016 sodium 140, potassium 3.5, BUN 19, creatinine is 2. Glucoses in the 200s, 204. Calcium 8.9. Total bilirubin is 1.05. AST 32, ALT 20, CRP 41, albumin 3.0. IMAGING: Chest x-ray on 11/14/2016 states improved atelectasis versus pneumonia on the right lower lobe, so there has been improvement. ASSESSMENT AND PLAN: 1. Acute on chronic hypoxemic respiratory failure. He is on 6 L nasal cannula. Continue with nebulizer treatments and pulmonary toilet. He ranges anywhere from 85-91% sats at home and here. This is on 6 L. His usual dose of oxygen at home I believe is 3 to 3.5 years. 2. Liver cirrhosis with hepatitis C. Will be followed as outpatient with Dr. Santiago for endoscopic workup after rehab. 3. Enlarged prostate with urinary retention. Was followed by Dr. Benavides. Had a Espinoza catheter placed. He will need to follow up after rehab with Dr. Benavides. His Flomax is twice daily. We will have to check to see if he still has a Espinoza catheter. I believe it was documented that he did not. Do not remember seeing it in the room. I know the plan was to remove it and see if he had any issues with voiding. 4. Status post right femur fixation was nail placement. Continue with physical therapy. He will need that kenrick removed on November 19 and follow up with Dr. Coreas. 5. Obstructive sleep apnea. No changes. 6. History of cerebrovascular accident. 7. Deep venous thrombosis prophylaxis. Xarelto. 8. History of coronary artery disease. Was on Plavix before he came in. December just keep on Xarelto. We will see. DISPOSITION: Currently awaiting on [facility] room. They are waiting on insurance to approve. Dictated by ARTHUR Fuentes for Mike Hawk MD
[2016-11-14] MEDS: COLACE PO SCH (20:16)
--- NOTE | 2016-11-14 20:34 | DISCHARGE SUMMARY ---
ADMISSION DATE: 11/02/2016 DISCHARGE DATE: 11/13/2016 PRIMARY CARE PHYSICIAN: Dr. Sandy Love. FINAL DISCHARGE DIAGNOSES: 1. Right femur fracture status post right long trochanteric fixation nail placement. 2. Acute on chronic hypoxemic respiratory failure. 3. End-stage chronic obstructive pulmonary disorder. 4. Constipation. 5. Liver cirrhosis. 6. Hepatitis C. 7. Morbid obesity. 8. History of cerebrovascular accident. 9. Diabetes mellitus type 2. 10. Hypertension. 11. Obstructive sleep apnea. 12. Enlarged prostate with urinary retention. 13. Pulmonary edema. CONSULTATIONS REQUESTED DURING THIS HOSPITAL STAY: 1. Orthopedic consultation with Dr. Patten. 2. Pulmonary consultation with Dr. Deras. 3. Urology consultation with Dr. Benavides. 4. GI consultation with Dr. Santiago. PROCEDURES PERFORMED DURING THIS HOSPITAL STAY: 1. Right long trochanteric fixation nail placement, performed on 11/03/2016. IMAGING PERFORMED DURING THIS HOSPITALIZATION: X-ray of the right femur: Revealed a femur fracture. CT of the chest performed on 11/07/2016: Revealed: 1. Bilateral hydronephrosis. 2. Hepatic cirrhosis. 3. Chronic obstructive pulmonary disorder. CT of the abdomen and pelvis performed on 11/07/2016: Revealed: 1. Dilation of the renal collecting systems. 2. Urinary bladder outlet obstruction. Abdominal ultrasound: Revealed fatty infiltration of the liver. HOSPITAL COURSE: Mr. Brady is a 76-year-old male with a history of multiple medical problems, who presented to the emergency room after suffering a fall at home and he could not get up. Upon arrival to the emergency room, an x-ray of the right femur was done that revealed a femur fracture. The patient was admitted to the hospitalist service for further treatment and evaluation. Orthopedic surgery was consulted and the patient was taken to the operating room the following day for a fracture repair. The patient does have end-stage chronic obstructive pulmonary disorder and was on hospice prior to admission to the hospital. The patient was noted to have to decompensate, so Pulmonary was consulted. The patient was placed on supplemental oxygen as well as bronchodilator therapy. It was also noted that the patient was mildly fluid overloaded, so Lasix was added to the patient's regimen. The patient states that he was normally on 2 L nasal cannula at home. The patient required several days of supplemental oxygen on via a Ventimask. Once the patient was adequately diuresed, he was able to be placed on 6 L nasal cannula. A CT of the abdomen and pelvis was done that revealed a possible urinary bladder outlet obstruction, as well as liver cirrhosis. In light of this finding, Urology, as well as GI, were consulted. The patient also had a hepatitis panel done that revealed hepatitis C. The patient was seen by the asset protection associate, who recommended follow up as outpatient once the patient has completed rehabilitation and once his pulmonary status was a little more stable. The patient was seen by physical therapy throughout the hospitalization and at this time, the patient is stable for discharge to [facility]. DISCHARGE MEDICATIONS: 1. Dulcolax 10 mg per rectum daily. 2. Pulmicort 0.5 mg inhaled twice a day. 3. Colace 200 mg p.o. at bedtime. 4. Ferrous sulfate 325 mg oral with breakfast. 5. Lantus 6 units subcutaneous every morning. 6. Xopenex 1.25 mg inhaled every 4 hours. 7. Oxycodone IR 5 mg p.o. every 3 hours p.r.n. for pain. 8. Xarelto 10 mg p.o. every 24 hours for another 14 days. 9. Flomax 0.4 mg p.o. twice a day. 10. Lipitor 20 mg p.o. daily. 11. Coreg 6.25 mg p.o. twice a day. 12. Lasix 20 mg p.o. twice a day. 13. Singulair 10 mg p.o. daily. 14. Omeprazole 20 mg p.o. daily. 15. Metformin 1000 mg p.o. twice a day. DISCHARGE DIET: 1. 1800 ADA diet. 2. Low sodium diet. ACTIVITY: As tolerated. FOLLOWUP INSTRUCTIONS: 1. The patient will need to have his kenrick removed on November 19. 2. The patient will need to follow up with Dr. Benavides in 2 weeks. 3. The patient will need to follow up with Dr. Santiago in 2 weeks. 4. The patient will also need to follow up with Dr. Deras on 11/29/2016 as scheduled. 5. The patient will also need to follow up with Dr. Love in 2 weeks.
[2016-11-14] MEDS: MUCOMYST 20% INH SCH (23:10)
[2016-11-15] MEDS: OXY IR PO PRN ×2 (00:08→21:50)
[2016-11-15] MEDS: XOPENEX NEB INH SCH ×4 (02:49→11:03)
[2016-11-15] MEDS: ATROVENT NEB INH SCH ×3 (02:49→11:03)
[2016-11-15] MEDS: XARELTO PO SCH (06:40)
[2016-11-15] MEDS: PRILOSEC PO SCH ×2 (06:40→19:30)
[2016-11-15] MEDS: HUMULIN R SUBQ SCH ×4 (06:41→21:46)
[2016-11-15] MEDS: MUCOMYST 20% INH SCH ×2 (07:08→19:50)
--- NOTE | 2016-11-15 07:23 | PROGRESS NOTE ---
DATE: 11/15/2016 SUBJECTIVE: Jairo Brady is a 76-year-old male who is about 9 days out from his right trochanteric fixation nail placement. He complains of continued pain. Has made little progress with physical therapy. OBJECTIVE: His vital signs are stable. He is afebrile. His wounds are clean, dry, and intact without sign of infection. They appear to be healed. His leg is otherwise neurovascularly intact. ASSESSMENT: Status post right trochanteric fixation nail placement. PLAN: We are going to remove his kenrick today. I am going to order x-rays as a followup to check and make sure the fracture is still in acceptable position. He can be transferred to rehab once these are done.
[2016-11-15] MEDS: DULCOLAX PR SCH (09:48)
[2016-11-15] MEDS: LIPITOR PO SCH (09:49)
[2016-11-15] MEDS: SINGULAIR PO SCH (09:49)
[2016-11-15] MEDS: COREG PO SCH ×2 (09:49→21:45)
[2016-11-15] MEDS: PERIDEX MT SCH ×2 (09:49→21:45)
[2016-11-15] MEDS: FERROUS SULFATE PO SCH (09:49)
[2016-11-15] MEDS: FLOMAX PO SCH ×2 (09:49→21:45)
[2016-11-15] MEDS: LANTUS SUBQ SCH ×2 (09:50→16:45)
--- NOTE | 2016-11-15 10:37 | Diag Imaging Result Document ---
PROCEDURE NAME: FEMUR MIN 2 VIEWS RIGHT - 11/15/2016 PLAIN RADIOGRAPH OF THE RIGHT FEMUR, 4 VIEWS: COMPARISON: 11/02/2016. FINDINGS: There has been interval internal fixation of the displaced fracture of the femoral shaft seen on the previous study. A medullary metallic bijan is in place. The femur is now normally aligned. There has been some interval bony callus formation since the previous study at the fracture. However, there is also an apparent fracture at the proximal shaft of the right femur that was not present on the previous study. There is no significant displacement. It is unclear if this happened during the interval. It may be postsurgical. There is generalized soft- tissue edema about the leg. IMPRESSION: 1. Interval internal fixation of the fracture near the mid to proximal shaft of the right femur seen on the previous study with some evidence of healing. 2. Fracture involving the proximal shaft of the right femur that was not identified on the previous study. Please see above discussion.
[2016-11-15] MEDS: PULMICORT INH SCH (11:03)
[2016-11-15] MEDS: LEVAQUIN PO SCH (11:22)
[2016-11-15] MEDS ORDERED: DUONEB (A & A) INH PRN (11:27)
[2016-11-15] MEDS: DUONEB (A & A) INH SCH ×4 (15:10→23:40)
--- NOTE | 2016-11-15 16:55 | PROGRESS NOTE ---
DATE: 11/15/2016 SUBJECTIVE: The patient reports feeling fine. Denies any fever or chills. Denies any shortness of breath. OBJECTIVE: Vital Signs: Temperature 97.6 degrees, heart rate 82, respiratory rate 16, blood pressure 115/61, O2 saturation. 90% on 6 L nasal cannula. General Examination: This is a chronically ill-appearing, 76-year-old male, lying in bed, in no acute distress. HEENT: Head is normocephalic, atraumatic. Anicteric sclerae and pale conjunctivae. Mucous membranes dry. Neck: Supple. No JVD noted. No carotid bruits. No lymphadenopathy. No thyromegaly. Cardiovascular: S1 and S2 heard. No murmurs, gallops, or rubs. Regular rate and rhythm. Respiratory: Decreased breath sounds globally. There is no wheezing or crackles. Patient is not using any accessory muscles or having work of breathing. Abdomen: Soft, nontender to palpation. Bowel sounds present. No organomegaly. Extremities: No clubbing, cyanosis, or edema. Peripheral pulses present in both legs. Neurological: Patient alert and oriented x3. Moves 4 extremities. LABORATORY DATA: There are no labs from today. ASSESSMENT AND PLAN: 1. Acute on chronic hypoxemic respiratory failure secondary to chronic obstructive pulmonary disease exacerbation. Patient is on 6 L nasal cannula. Although he has COPD I think he is not on any exacerbation anymore. He is still requiring high amounts of oxygen. At this point, a 6 L of nasal cannula and the O2 saturation ranged between 88 and 90 most of the time. At this point, we are going to continue with the same management. 2. Status post right femur fixation. Dr. Patten from Orthopedics is following this patient. 3. Liver cirrhosis with hepatitis C. The patient is going to be seen by Dr. Santiago for endoscopy after rehab. 4. Urinary retention. Patient has been evaluated by Dr. Benavides from Urology. Patient currently had a Espinoza catheter. We tried to remove it a few days ago but the patient seemed that he still needs it. At this point, we are going to discharge him with Espinoza catheter to have a followup with his primary care physician. 5. Obstructive sleep apnea, aware. 6. History of CVA, aware. 7. Coronary artery disease is stable. Patient is not experiencing any chest pain. 8. Disposition. Patient was supposed to be sent to rehab facility in [facility] but they refused to take this patient because of his high oxygen needs. Considering that this is still an issue I guess it is a good idea to try to send him to LTAC in [place]. We have talked with social media content specialist about it AND we will see what they have to say.
[2016-11-15] MEDS: COLACE PO SCH (21:45)
[2016-11-16] MEDS: DUONEB (A & A) INH SCH ×6 (04:19→23:18)
[2016-11-16] MEDS: PRILOSEC PO SCH ×2 (06:41→20:24)
[2016-11-16] MEDS: XARELTO PO SCH (06:41)
[2016-11-16] MEDS: HUMULIN R SUBQ SCH ×4 (06:41→20:25)
[2016-11-16] MEDS: MUCOMYST 20% INH SCH ×2 (07:21→20:08)
[2016-11-16] MEDS: FORADIL INH SCH (07:22)
[2016-11-16] MEDS: OXY IR PO PRN (07:56)
[2016-11-16] MEDS: SINGULAIR PO SCH ×2 (07:57→08:15)
[2016-11-16] MEDS: LIPITOR PO SCH ×2 (07:57→08:15)
[2016-11-16] MEDS: PERIDEX MT SCH ×3 (07:57→20:24)
[2016-11-16] MEDS: FERROUS SULFATE PO SCH (07:57)
[2016-11-16] MEDS: FLOMAX PO SCH ×3 (07:57→20:24)
[2016-11-16] MEDS: LANTUS SUBQ SCH (08:00)
[2016-11-16] MEDS: COREG PO SCH ×2 (08:00→20:24)
[2016-11-16] MEDS: DULCOLAX PR SCH (08:00)
--- NOTE | 2016-11-16 11:30 | PROGRESS NOTE ---
DATE: 11/16/2016 SUBJECTIVE: Jairo Brady is a 76-year-old male who is about 10 days out from his right trochanteric fixation nail placement. He complains of pain, but it has improved, and he is making more progress with physical therapy. OBJECTIVE: Vital signs: Stable. He is afebrile. Extremities: His wounds are clean, dry, and intact without sign of infection. They appear to be healed, and his kenrick have been removed. His leg is otherwise neurovascularly intact. ASSESSMENT: Status post right trochanteric fixation nail placement. PLAN: The x-ray that was ordered of his femur shows a stable placement of the bijan, and the fractures are in acceptable position. He can be transferred to rehab. Dictated by MARGARET Wolfe for Dawson Patten MD
[2016-11-16] MEDS: LEVAQUIN PO SCH (12:08)
--- NOTE | 2016-11-16 15:51 | PROGRESS NOTE ---
DATE: 11/16/2016 SUBJECTIVE: Patient reports feeling fine. Denies any shortness of breath. Reports some pain that comes from the Espinoza catheter that hurts the bladder. OBJECTIVE: Vital Signs: Temperature 97.8 degrees, heart rate 86, respiratory rate 18, blood pressure 109/57, O2 saturation 91% on 6 L nasal cannula. General Examination: This is a chronically ill-appearing and frail 76-year-old male lying in bed, in no acute distress. HEENT: Head is normocephalic, atraumatic. Anicteric sclerae and pale conjunctivae. Mucous membranes moist. Neck: Supple. No JVD noted. No carotid bruits. No lymphadenopathy. No thyromegaly. Cardiovascular: S1, S2 heard. No murmurs, gallops, or rubs. Regular rate and rhythm. Respiratory: Decreased breath sounds globally. No wheezing. No crackles. Patient is not using any accessory muscles or having work of breathing. Abdomen: Soft, nontender to palpation. Bowel sounds present. No organomegaly. Extremities: Stating extremities no clubbing, cyanosis, or edema. Peripheral pulses present in both legs. Neurological: Patient is alert, oriented, and x3. Able to move 4 extremities. LABORATORY DATA: None. ASSESSMENT AND PLAN: 1. Acute on chronic hypoxemic respiratory failure secondary to chronic obstructive pulmonary disease. Unfortunately, despite having him on long-acting and short-acting bronchodilators, patient still requires 6 L of oxygen. I think it is his baseline. I think this patient's oxygen needs are not going to get down. At this point, we are trying to get a bed for him in LTAC. We will see if they accept the patient. 2. Status post right femur fracture fixation. Dr. Patten from Orthopedics is following this patient and they are okay to let him go when he has a bed in a rehab facility. 3. Liver cirrhosis with hepatitis C. Stable. Dr. Santiago is going to see him for endoscopy after rehab. 4. Urinary retention. Patient requires Espinoza catheter until he sees urologist, Dr. Benavides. We tried to remove it, but this patient unfortunately continues to retain urine. 5. Obstructive sleep apnea, aware. 6. History of cerebrovascular accident, aware. 7. Coronary artery disease, stable. Not complaining of any chest pain. 8. Disposition: Awaiting for a bed in an LTAC facility.
[2016-11-16] MEDS: COLACE PO SCH (20:24)
[2016-11-16] MEDS: MORPHINE IV PRN (20:25)
[2016-11-17] MEDS: COREG PO SCH ×3 (01:59→21:33)
[2016-11-17] MEDS: MORPHINE IV PRN ×2 (02:13→21:28)
[2016-11-17] MEDS: DUONEB (A & A) INH SCH ×6 (03:34→23:15)
[2016-11-17] MEDS ORDERED: INSULIN PEN NEEDLES ONE (06:11)
[2016-11-17] MEDS: XARELTO PO SCH (06:48)
[2016-11-17] MEDS: PRILOSEC PO SCH ×2 (06:48→18:32)
[2016-11-17] MEDS: HUMULIN R SUBQ SCH ×4 (06:48→21:27)
[2016-11-17] MEDS: MUCOMYST 20% INH SCH ×2 (07:00→19:50)
[2016-11-17] MEDS: PERIDEX MT SCH ×2 (08:38→21:28)
[2016-11-17] MEDS: LIPITOR PO SCH (08:39)
[2016-11-17] MEDS: FLOMAX PO SCH ×2 (08:39→21:28)
[2016-11-17] MEDS: LANTUS SUBQ SCH (08:39)
[2016-11-17] MEDS: SINGULAIR PO SCH (08:39)
[2016-11-17] MEDS: FERROUS SULFATE PO SCH (08:39)
[2016-11-17] MEDS: DULCOLAX PR SCH (08:43)
[2016-11-17] MEDS: FORADIL INH SCH ×2 (10:54→19:50)
[2016-11-17] MEDS: LEVAQUIN PO SCH (10:54)
--- NOTE | 2016-11-17 15:28 | PROGRESS NOTE ---
DATE: 11/17/2016 SUBJECTIVE: The patient reports he is still feeling fine. The patient reports at home he uses 2 L of oxygen by nasal cannula. Now, he is requiring 6. No shortness of breath at rest. OBJECTIVE: Vital Signs: Temperature 98.1 degrees, heart rate 85, respiratory rate 18, blood pressure 120/65. O2 saturation 91% on 6 L of nasal cannula. General: This is a chronically ill- appearing and frail 76-year-old male lying in bed in no acute distress. HEENT: Head is normocephalic, atraumatic. Anicteric sclerae and pale conjunctivae. Mucous membranes moist. Neck supple. No JVD noted. No carotid bruits. No lymphadenopathy. No thyromegaly. Cardiovascular: S1, S2 heard. No murmurs, gallops, or rubs. Regular rate and rhythm. Respiratory: Decreased breath sounds globally. There is no wheezing or crackles. The patient is not using any accessory muscles or having work of breathing. Abdomen is soft. A little bit distended but nontender to palpation. Bowel sounds present. No organomegaly. Extremities: No clubbing, cyanosis, or edema. Peripheral pulses present in both legs. Neurologic: The patient is alert and oriented x3. Able to move 4 extremities. LABORATORY DATA: None. ASSESSMENT AND PLAN: 1. Ecokr-bv-mfmcapy hypoxemic respiratory failure secondary to chronic obstructive pulmonary disease. Unfortunately, he continues to require a lot of oxygen and still needing 6 L of oxygen by nasal cannula. He reports that he was using 2 L at home, so we are going to check a CT of the chest to see if there is anything like a pneumonia or pulmonary embolism that is causing this hypoxemia. The LTAC facility that we consulted refused to take this patient because he is requiring a lot of oxygen, and they think that he will not be able to do the exercises that physical therapy requires for each patient. Apparently, the patient was on hospice before coming to the hospital. We are going to consult Palliative Care to help us figure out what are the goals of care on this patient. 2. Status post right femur fracture fixation. Dr. Patten from Orthopedics was following this patient, and he is okay to go to a rehab facility. 3. Liver cirrhosis with hepatitis C, stable. 4. Urinary retention. The patient has Espinoza catheter. He is supposed to follow up with Dr. Benavides. 5. Obstructive sleep apnea, aware. 6. History of cerebrovascular accident, aware. 7. Coronary artery disease, stable. Not complaining of any chest pain. DISPOSITION: In case our workup to see if there is any pulmonary embolism or pneumonia is negative, I think we are going to proceed with Palliative Care to try to send this patient home on hospice.
[2016-11-17] MEDS: OXY IR PO PRN (15:58)
[2016-11-17] MEDS: COLACE PO SCH (21:29)
[2016-11-18] MEDS: DUONEB (A & A) INH SCH ×4 (03:35→16:05)
[2016-11-18] MEDS: HUMULIN R SUBQ SCH ×3 (06:18→16:32)
[2016-11-18] MEDS: XARELTO PO SCH (06:18)
[2016-11-18] MEDS: PRILOSEC PO SCH (06:18)
[2016-11-18] MEDS: MUCOMYST 20% INH SCH (08:01)
[2016-11-18] MEDS: FORADIL INH SCH ×3 (08:01→08:26)
[2016-11-18] MEDS: FERROUS SULFATE PO SCH (08:04)
[2016-11-18] MEDS: COREG PO SCH (08:05)
[2016-11-18] MEDS: DULCOLAX PR SCH (08:05)
[2016-11-18] MEDS: LIPITOR PO SCH (08:06)
[2016-11-18] MEDS: SINGULAIR PO SCH (08:06)
[2016-11-18] MEDS: PERIDEX MT SCH (08:06)
[2016-11-18] MEDS: LANTUS SUBQ SCH (08:07)
[2016-11-18] MEDS: FLOMAX PO SCH (08:07)
[2016-11-18] MEDS: LEVAQUIN PO SCH (11:06)
[2016-11-18] MEDS ORDERED: LASIX IV ONE (12:24)
[2016-11-18 13:33] VITALS: BP 102/58
--- NOTE | 2016-11-18 15:47 | PALLIATIVE CARE CONSULTATION ---
DATE: 11/18/2016 REQUESTING PHYSICIAN: Dr. Mike Hawk. REASON FOR CONSULTATION: Goals of care related to end-stage chronic obstructive pulmonary disease. HISTORY OF PRESENT ILLNESS: This is a 76-year-old, chronically ill-appearing, male with a past medical history of end-stage COPD, diabetes, coronary artery disease, congestive heart failure, hypertension, hyperlipidemia peripheral vascular disease, CVA, abdominal aortic aneurysm, sleep apnea, bilateral hydronephrosis, and gastroesophageal reflux disease. He was admitted on 11/02/2016, after experiencing a fall at home which resulted in severe right leg pain. He was brought to the ED and found to have a right femur fracture. Orthopedics was consulted and he was ultimately taken to surgery for repair. Prior to this admission, he was on home hospice services with [facility] under the diagnosis of end-stage COPD. Currently, he is sitting up at the bedside. He is now requiring 6L of oxygen via nasal cannula, whereas he was only requiring 2L of oxygen while at home before this admission. He becomes hypoxic with conversation; however, he denies shortness of breath. His is at the bedside. He also denies pain. He states that his appetite is good. He denies nausea, anxiety, or depression. The Palliative Care Team has been consulted to assist with goals of care. REVIEW OF SYSTEMS: Twelve-point review of systems has been conducted and otherwise negative except those mentioned in the HPI. PAST MEDICAL HISTORY: 1. End-stage chronic obstructive pulmonary disease. 2. Diabetes. 3. Congestive heart failure. 4. Hypertension. 5. Coronary artery disease. 6. Hyperlipidemia. 7. Peripheral vascular disease. 8. Cerebrovascular accident. 9. Abdominal aortic aneurysm. 10. Sleep apnea. 11. Bilateral hydronephrosis. 12. Gastroesophageal reflux disease. PAST SURGICAL HISTORY: 1. Tonsillectomy. 2. Coronary artery stent placement. 3. Vasectomy. 4. Bilateral inguinal hernia repair. SOCIAL HISTORY: Prior to this admission, he lived at home with his . He is a past tobacco user. It is reported that he smoked 3-5 packs per day for over 65 years. Alcohol and drug use have been denied. He was receiving hospice services prior to this admission for end-stage COPD. PHYSICAL EXAMINATION: General: This is a 76-year-old, chronically ill-appearing male who does not appear to be in any acute distress. HEENT: Atraumatic, normocephalic. Neck: Supple. Cardiovascular: Increased rate. Regular rhythm. Pulmonary: Lung sounds are diminished, with an occasional wheeze. Respirations are labored with conversation. Abdomen: Obese, soft. Bowel sounds active. Extremities: Pulses are palpable. No edema noted. IMPRESSION: This is a 76-year-old male with a past medical history as listed above in the history of present illness. As previously mentioned, Mr. Brady was receiving home hospice services for his end-stage chronic obstructive pulmonary disease prior to this admission. The Palliative Care team was consulted to assist with goals of care. I met with the patient and his to discuss those goals of care. Both the patient and his were adamant that he receives some sort of physical therapy, be it at a facility or with home health in the home setting. The patient understands he must replicate hospice services to receive physical therapy or any rehabilitation. We discussed the progressive nature and the end-stage nature of his chronic obstructive pulmonary disease. We also discussed advance directive and power of spray gun striper. He does not have either document and is unsure of what his wishes are. He is a full code at this time. More information about advance directive and power of spray gun striper will be given to the patient and his , per their request. It appears that Mr. Brady' palliative performance scale is 40%. I also spoke with the social media content manager, Can Verduzco, concerning Mr. Brady and she is currently working with [facility] to find placement for Mr. Brady. In the event that he is unable to find placement in a facility, the patient and family would like to go home with home health. Thank you for this consultation. Dictated by ARTHUR Wolff for Fabien Purdy MD cc: ARTHUR Wolff MD
--- NOTE | 2016-11-18 18:35 | DISCHARGE SUMMARY ---
ADMISSION DATE: 11/02/2016 DISCHARGE DATE: 11/18/2016 DISCHARGE DIAGNOSES: 1. Acute on chronic hypoxemic respiratory failure secondary to chronic obstructive pulmonary disease. 2. Chronic obstructive pulmonary disease. 3. Right femur fracture status post surgical fixation. 4. Liver cirrhosis with hepatitis C. 5. Urinary retention and hydronephrosis, improved. 6. Obstructive sleep apnea. 7. History of cerebrovascular accident. 8. Coronary artery disease. 9. Ischemic cardiomyopathy. CONSULTATIONS: 1. Dr. Dawson Patten from Orthopedics. 2. Dr. Guru Deras from Pulmonary. 3. Dr. Pantera Benavides from on Urology. 4. Dr. Ev Santiago from Gastroenterology. PROCEDURES: 1. Femur x-ray done on admission showed femur fracture. 2. Echocardiogram showed estimated ejection fraction of 50% to 55%, with no aortic stenosis or regurgitation. No pericardial effusion. No obvious intracardiac mass or thrombus seen. 3. Right long trochanteric fixation nail placement done by Dr. Patten. 4. Chest CT done on 11/07/2016 does show possible bilateral hydronephrosis, but renal imaging recommended. Hepatic cirrhosis with benign-appearing nodules in the liver. Chronic obstructive pulmonary disease. 5. Trace pleural effusions and some patchy bibasilar atelectasis, but no pneumonia of significant edema. 6. Abdomen CT showed dilatation of the renal collecting system, ureters, and urinary bladder that suggest urinary bladder outlet obstruction. 7. Ultrasound of both lower extremities did not show any deep vein thrombosis. HOSPITAL COURSE: Please refer to discharge summary dictated on 11/13/2016. Patient, as we mentioned before, has been admitted to the hospital for right hip fracture and was taken to the OR by Dr. Patten. That condition was resolved. Also, we mentioned that this patient developed fluid overload and he was on Lasix. Also, CT of the abdomen and pelvis showed bilateral hydronephrosis, so the patient was placed on Espinoza catheter and he is supposed to go with that Espinoza catheter until he is seen by Dr. Benavides. During all of his stay in the hospital from to 11/18/2016, there was no clinical change. The patient basically was requiring 6L of oxygen by nasal cannula. Initially, he was requiring Ventimask, but now his oxygen need has been going down slowly, between 5 and 6. The patient now has been accepted to [facility]. The patient is being discharged in stable condition. PHYSICAL EXAMINATION: Vital Signs: Temperature 98.8 degrees, heart rate 88, respiratory rate 20, blood pressure 102/50, and O2 saturation 91% on 6L nasal cannula. General: This is a chronically ill-looking and frail 76-year-old male, lying in bed in no acute distress. HEENT: Head is normocephalic and atraumatic. Anicteric sclerae and pale conjunctivae. Mucous membranes moist. Neck: Supple. No JVD noted. No carotid bruits. No lymphadenopathy. No thyromegaly. Cardiovascular: Normal S1 and S2 heard. No murmurs, gallops, or rubs. Regular rate and rhythm. Respiratory: Decreased breath sounds globally with no wheezing. The patient is not using any accessory muscles. Abdomen: Soft, nontender to palpation. Bowel sounds present. No organomegaly. Extremities: No clubbing, cyanosis, or edema. Peripheral pulses present in both legs. Neurologic: Patient is alert and oriented x3. Moves 4 extremities. DISCHARGE DISPOSITION: To rehabilitation facility, [facility]. UPDATED LIST OF MEDICATIONS: 1. Atrovent 1 inhalation every 4 hours as needed for shortness of breath. 2. Dulcolax 10 mg rectally daily as needed for constipation. 3. Colace 200 mg p.o. at bedtime. 4. Ferrous sulfate 325 mg p.o. with breakfast. 5. Foradil 1 inhalation twice daily. 6. Lantus 15 units subcutaneously daily. 7. Albuterol 1 inhalation every 4 hours as needed. 8. Oxycodone IR 5 mg 1 tablet p.o. every 3 hours as needed for pain. 9. Xarelto 10 mg 1 tablet p.o. every daily for 20 days. 10. Tamsulosin 0.4 mg 1 tablet p.o. b.i.d. 11. Spiriva 1 inhalation daily. 12. Lipitor 40 mg 1 tablet p.o. daily. 13. Carvedilol 6.25 b.i.d. 14. Furosemide 20 mg p.o. b.i.d. 15. Metformin 1000 mg b.i.d. 16. Singular 10 mg p.o. daily. 17. Omeprazole 20 mg p.o. daily. FOLLOWUP: 1. Follow up with Dr. Patten in 4 weeks. 2. Follow up with his primary care physician in 4 weeks. DISCHARGE TIME: 40 minutes. cc: Mike Hawk MD MTDD
== END 2016-11-18 07:36 ==
LOC: EDBD → ED 09:39 → 4N 09:40 → DIRADM 11-04 14:43 → 4N 11-04 14:46
PROVIDERS: ATTEND Internal Medicine